=== PATIENT | male | born 1965 | race Caucasian/White ===

== ENCOUNTER 2020-11-14 15:13 | Inpatient (IN) | payer OTHER, SELFPAY ==
[2020-11-14] VITALS (12 sets, daily range): BP systolic 139–163; BP diastolic 92–104; PULSE 101–120; RESP 26–37; TEMP 36.6; O2SAT 91–96; BMI 21.4
--- NOTE | ~2020-11-14 | XR_ITS ---
EXAMINATION: XR chest 1V portable DATE: 11/14/2020 15:57 INDICATION: COPD presenting with shortness of breath and chest pressure TECHNIQUE: frontal view of the chest was obtained. COMPARISON: Chest radiograph dated 08/08/2019 FINDINGS: Again seen is emphysema with hyperexpansion the lungs and increased lucency, architectural distortion and bullous changes in the bilateral upper lung zones. Persistent coarse interstitial pattern and sc attered mild patchy airspace opacities in the bilateral mid and lower lung zones. Blunting at the abby ateral costophrenic angles consistent with small bilateral pleural effusions. No pneumothorax. Cardio megaly. IMPRESSION: 1. Emphysema. 2. Similar pattern of interstitial and airspace opacities in the bilateral mid and lower lung zones w hich could represent congestive heart failure related pulmonary edema, pneumonia, atelectasis or some combination thereof. 3. Small bilateral pleural effusions. 4. Cardiomegaly. Reviewed, dictated and finalized at location A. TRIMMER IMPRESSION: 1. Emphysema. 2. Similar pattern of interstitial and airspace opacities in the bilateral mid and lower lung zones which could represent congestive heart failure related pul monary edema, pneumonia, atelectasis or some combination thereof. 3. Small bilateral pleural effusions. 4. Cardiomegaly.
--- NOTE | ~2020-11-14 | US_ITS ---
EXAMINATION: US venous doppler [facility] DATE: 11/17/2020 07:43 INDICATION: Bilateral lower limb swelling TECHNIQUE: Manley scale images without and with compression and Doppler images of the bilateral lower e xtremity veins were obtained. COMPARISON: 03/11/2019 FINDINGS: The right common femoral vein, profunda femoral vein, femoral vein, popliteal vein, peroneal trunk, p osterior tibial veins, and greater saphenous vein are patent. The left common femoral vein, profunda femoral vein, femoral vein, popliteal vein, peroneal trunk, po sterior tibial veins, and greater saphenous vein are patent. IMPRESSION: 1. Patent bilateral lower extremity veins. No evidence of deep venous thrombosis. Reviewed, dictated and finalized at location A. RONMENTAL ENGINEER SCIENTIST IMPRESSION: 1. Patent bilateral lower extremity veins. No evidence of deep venous thrombosi s.
--- NOTE | ~2020-11-14 | XR_ITS ---
XR chest 2V DATE: 11/19/2020 11:51 INDICATION: Chest pain, shortness of breath TECHNIQUE: AP and lateral views COMPARISON: November 14, 2020 portable AP chest FINDINGS: There is bilateral hyperinflation, increased retrosternal airspace disease, relative flatte diana the diaphragm, consistent with COPD. Central pulmonary arteries are prominent, suggesting pulmon julius hypertension. There is cardiomegaly. Is aortic calcification. There are bilateral pulmonary infiltrates which predominate in the lower lung zones; these are mildly improved since November 14, 2020 and may be secondary to pulmonary edema and/or pneumonia. There are mild pleural effusions. No pneumothorax. IMPRESSION: Mild interval improvement of bilateral infiltrates since 01/12/2021 suggesting improvement of pulmonary interstitial edema and/or pneumonia Reviewed, dictated and finalized at location A. RICT ATTORNEY
--- NOTE | 2020-11-14 15:21 | ECG_ITS ---
Measurements Intervals [place] Rate: 113 P: 65 [place]: 136 QRS: -72 QRSD: 108 T: 83 QT: 350 QTc: 481 Interpretive Statements SINUS TACHYCARDIA POSSIBLE RIGHT ATRIAL ENLARGEMENT LEFT ATRIAL ENLARGEMENT INCOMPLETE RIGHT BUNDLE BRANCH BLOCK LEFT ANTERIOR FASCICULAR BLOCK BASELINE ARTIFACT- II, III, AVF, V4-V6 ABNORMAL ECG Electronically Signed On 11-14-2020 15:49:29 FULL SERVICE SUPERVISOR by Rogers Calderon D.O.
[2020-11-14 15:34] LABS: Basophils Absolute Auto 0.1 K/mm3 (0.0-0.1); Basophils Percent Auto 0.4 % (0.2-1.2); Eosinophils Absolute Auto 0.1 K/mm3 (0-0.3); Eosinophils Percent Auto 0.7 % (0-4.4); Hematocrit 42.6 % (42.0-52.0); Hemoglobin 13.9 g/dL (14.0-18.0); Immature Granulocyte Absolute 0.11 K/mm3 (0.00-0.031); Immature Granulocyte Percent A 0.8 % (0-0.5); Lymphocytes Absolute Auto 0.62 K/mm3 (0.9-3.2); Lymphocytes Percent Auto 4.6 % (18.3-44.2); Mean Corpuscular HGB Conc 32.6 g/dl (32-36); Mean Corpuscular Hemoglobin 35.7 pg (26-34); Mean Corpuscular Volume 109.5 fl (80-100); Mean Platelet Volume 9.4 fl (7.4-10.4); Monocytes Absolute Auto 0.9 K/mm3 (0.1-0.6); Monocytes Percent Auto 6.4 % (2.6-8.5); Neutrophils Absolute Auto 11.8 K/mm3 (1.3-6.7); Neutrophils Percent Auto 87.1 % (45.5-73.1); Platelet Count Result 189 k/mm3 (150-375); Red Blood Count 3.89 M/mm3 (4.6-6.20); Red Cell Distribution Width 14.3 % (11.5-14.5); White Blood Count 13.5 K/mm3 (4.5-10.0)
[2020-11-14 15:42] LABS: INR 0.9; Prothrombin Time 12.8 Seconds (11.1-14.7)
[2020-11-14 15:43] LABS: Partial Thromboplastin Time 27.7 SECONDS (22.3-36.8)
[2020-11-14 15:48] LABS: Alveolar/Arterial O2 Gradient 195.3 mmHg; Base Excess ABG 1.7 mEq/l (+/-2.0); Carboxyhemoglobin 6.1 % THb (0-2.0); Fractional Inspired Oxygen 44 %; HCO3 ABG 27.2 mEq/l (22.0-26.0); Methemoglobin ABG 0.1 %THb (0-1.5); Oxygen Content ABG 16.3 %vol (16.0-22.0); Oxygen Saturation ABG 92.8 % (95.0-100.0); Oxyhemoglobin 86.6 % THb (90.0-100.0); PCO2 ABG 45.9 mmHg (35.0-45.0); PO2 ABG 66.1 mmHg (80.0-100.0); Reduced Hemoglobin 7.2 %THb (0-5.0); Total Hemoglobin 13.4 g/dL (12.0-18.0)
[2020-11-14 15:50] LABS: Anion Gap 2 mmol/L (8-16); Blood Urea Nitrogen 15 mg/dL (9-20); Calcium 8.3 mg/dL (8.4-10.2); Carbon Dioxide 35 mmol/L (22-30); Chloride 98 mmol/L (98-107); Estimated CRCL calculation 134 ml/min; Estimated Glomerular Filt Rate > 60; Glucose 115 mg/dL (75-110); Potassium 4.5 mmol/L (3.4-5.0); Sodium 135 mmol/L (137-145)
[2020-11-14 15:50] LABS: Device NASAL CANNULA; Modified Allen's Test Pass; Site Drawn LEFT RADIAL
[2020-11-14 15:53] LABS: NT Pro B Type Natriuretic Pept 5090 PG/ML (5-100)
--- NOTE | 2020-11-14 16:17 | ED.SOB ---
HPI - SOB/Dyspnea General Chief Complaint: Shortness of Breath/Dyspnea Stated Complaint: SOB Time Seen by Provider: 11/14/20 15:17 History of Present Illness HPI Narrative: Patient is a 55-year-old male who presents ER with shortness of breath. Patient has chronic oxygen dependence of 4 L due to his emphysema. He also has known CHF. Reports he has had increased leg swelling over the last couple months and over the last few days he has been doubling his Lasix without any success in decreasing his edema. Reports edema is gone up to his abdomen as well. Shortness of breath is worse with laying down and with any type of movement. Patient was in his primary care physician's office and satting at 77% on his home O2 when he got sent to the ER. Denies fevers or chills or productive cough. No chest pain/pressure. Related Data Home Medications Medication Instructions Recorded Confirmed fluticasone furoate 100 1 inhalation INHALATION DAILY 05/24/20 mcg/actuation blister powder for inhalation Allergies Allergy/AdvReac Type Severity Reaction Status Date / Time No Known Allergies Allergy Mild Verified 11/14/20 14:46 Review of Systems Review of Systems: All systems reviewed & are unremarkable except as noted in HPI and below Constitutional: Constitutional: Denies chills, Reports fatigue and Denies fever(s) ENT: Denies nasal congestion and Denies sore throat Cardiovascular: Cardiovascular: Denies chest pain, Denies rapid heart rate and Denies radiating jaw, neck or arm pain Respiratory: Respiratory: Reports chest congestion, Denies cough, Reports dyspnea and Denies wheezing Gastrointestinal: Gastrointestinal: Denies abdominal pain, Denies nausea and Denies vomiting Musculoskeletal: Comments: Extremity edema PMFSH Past Medical History Medical History (Updated 11/14/20 @ 16:34 by Waqar Bravo MD) CHF (congestive heart failure) Chronic malnutrition COPD (chronic obstructive pulmonary disease) Emphysema, unspecified Laceration of thumb, right Skin cancer Tobacco abuse Surgical History Surgical History (Updated 08/08/19 @ 16:54 by Sandro Bernal) History of local excision of skin lesion Family History Family History Mother Hypertension Family history of cardiovascular disease, Onset Age: 43 Acute myocardial infarction, Onset Age: 43 Sibling Family history of cardiovascular disease Family history of lung cancer Patient's sister is in good health Patient's brother is in good health Acute myocardial infarction Family history of chronic obstructive pulmonary disease Family history of malignant neoplasm of brain Social History Social History Social History: The patient is and lives with his of 35 years. The patient does admit since have to be a full code. The patient uses nor methamphetamines in the past but not currently. The patient is a needs himself to be a full code. 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 He has 2 children. 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 Smoking packs per day: 1 Smoking cigarettes per day: 20.0 Years smoked: 30 Smoking pack-years: 30.00 Smoking status: Current every day smoker Tobacco type: cigarettes Second hand tobacco smoke exposure: Yes Alcohol intake: current Drinks per week: 14 Substance use: current Substance use type: marijuana Gender identity (if verbalized by the patient): Male Spiritual care concerns: No Agree to blood products: Yes Exam Narrative: Exam Narrative: GENERAL: Chronically ill-appearing, well-nourished, and in moderate distress. HEAD: Normocephalic, atraumatic. ENT: Mucous membranes moist. CHEST: Coarse rales throughout with increased respiratory rate. Moderate respiratory distress. HEART: Tachycardic and regular. Normal peripheral pulses. A
[2020-11-14] MEDS: FUROSEMIDE INJ 40 MG/4 ML VIAL IV PUSH (17:13)
[2020-11-14] MEDS: HYDROcodone/acetaminophen (*CRX) 5-325 MG TABLET 1 TAB PO (17:13)
--- NOTE | 2020-11-14 18:24 | PC.NURSE ---
Heart healthy meal tray ordered for patient.
--- NOTE | 2020-11-14 18:28 | PC.NURSE ---
Meal tray sent to room 231.
--- NOTE | 2020-11-14 19:27 | PC.NURSE ---
1926 - Report called to RN taking over patient's care. RT called for transport.
--- NOTE | 2020-11-14 20:15 | ADMGEN ---
This patient, Jimmy Welch, was admitted to IMU Room 231-01 0n [id number] at 1940. Patient/family oriented to hospital policies and general routines including ID bracelet, bed and alarms, visiting hours, pain management, procedures, bathroom and other care routines, personal items, smoking policy, room service/diet, and visiting hours. Information on how to activate the Rapid Response Team has been discussed. Patient/Family are encouraged to report perceived risks to care and to ask questions if they do not understand what they are told or what they should do.
--- NOTE | 2020-11-14 22:17 | PM.IMHP ---
H&P: HPI History of Present Illness Date/Time: 11/14/20 22:17 Chief Complaint: Shortness of breath with hypoxia Narrative: Jimmy Welch is a 55 year old male. The patient has chronic respiratory failure and is typically on oxygen at 4 L per nasal cannula. The patient has had increased swelling over the last couple months. In the last couple days he doubled his Lasix without success. The patient went to his primary care doctor's office today it is O2 saturation was found to be 88%. The patient has orthopnea but this is not uncommon for him. The patient also has dyspneic exertion. Patient has no chest pain or chest pressure. No fever no chills. The patient has been taking his medication as usual. Patient still continues to smoke about 4 -5 cigarettes a day. His blood pressure was found to be 143/100. His white count was noted to be 13.5. Chest x-ray was read as emphysema. Similar pattern of interstitial and airspace opacities in the bilateral mid and lower lung zones which could represent congestive heart failure related to pulmonary edema, pneumonia, atelectasis or some combination thereof. Small bilateral pleural effusion. Cardiomegaly. Arterial blood gases pH 7.390. CO2 was 45.9. Patient is on 6 L per nasal cannula at this time. The patient had been on a BiPAP. Patient is being admitted to inpatient on the date of service of 11/14/2020 Review of Systems Review of Systems: All systems reviewed & are unremarkable except as noted in HPI and below Constitutional: Constitutional: Reports as per HPI and Reports no additional constitutional complaints Eyes: Eyes: Reports as per HPI and Reports no additional eye complaints ENT: Reports system reviewed and no additional complaints, except as documented and Reports Normal hearing present Cardiovascular: Cardiovascular: Reports no additional cardiovascular complaints Respiratory: Respiratory: Reports no additional respiratory complaints and Reports no additional respiratory complaints Gastrointestinal: Gastrointestinal: Reports as per HPI and Reports no additional gastrointestinal complaints Musculoskeletal: Musculoskeletal: Reports no additional musculoskeletal complaints Integumentary/Breasts: Skin/Breast: Reports system reviewed and no additional complaints, except as docu and Reports as per HPI Neurologic: Reports system reviewed and no additional complaints, except as documented, Reports as per HPI and Reports Normal hearing present Psychiatric: Psychiatric: Reports no additional psychiatric complaints and Reports as per HPI Endocrine: Endocrine: Reports no additional endocrine complaints Hematologic/Lymphatic: Hematologic/Lymphatic: Reports no additional hematologic/lymphatic complaints Allergic/Immunologic: Allergic/Immunologic: Reports no additional allergic/immunologic complaints [facility] Past Medical History Medical History CHF (congestive heart failure) Chronic malnutrition COPD (chronic obstructive pulmonary disease) Emphysema, unspecified Laceration of thumb, right Skin cancer Tobacco abuse Surgical History Surgical History (Updated 11/14/20 @ 22:21 by Sharlene Maria NP) History of local excision of skin lesion On the face Family History Family History Mother Hypertension Family history of cardiovascular disease, Onset Age: 43 Acute myocardial infarction, Onset Age: 43 Sibling Family history of cardiovascular disease Family history of lung cancer Patient's sister is in good health Patient's brother is in good health Acute myocardial infarction Family history of chronic obstructive pulmonary disease Family history of malignant neoplasm of brain Social History Social History (Updated 11/14/20 @ 22:26 by Sharlene Maria NP) Social History: The patient is and lives with his . The patient is
[2020-11-14] MEDS: methylPREDNISolone SOD SUCC 125 MG VIAL 60 MG IV PUSH (23:41)
[2020-11-15] VITALS (14 sets, daily range): BP systolic 124–152; BP diastolic 72–86; PULSE 85–107; RESP 16–30; TEMP 36.1–36.7; O2SAT 92–96
--- NOTE | 2020-11-15 | ECHO_ITS ---
Patient Info Name: Jimmy Welch Age: 55 years : 1965 Gender: Male Ht: 69 in Wt: 145 lbs BSA: 1.79 m2 HR: 101 bpm BP: 152 / 84 mmHg Heart Rhythm: Sinus Rhythm Technical Quality: Good Exam Date: 11/15/2020 2:20 PM Exam Location: [facility] Patient Status: Inpatient Admit Date: 11/14/2020 Staff Ordering Physician: Saqib Viera MD Cutter Wet Machine: Kirit Nieto, KAYLYNN, RT Attending Provider: Fernie Pan MD Exam Type: CA echo doppler color flow Study Info Indications I27.2 - Other secondary pulmonary hypertension I50.9 - Heart failure, unspecified Complete two-dimensional, color flow and Doppler transthoracic echocardiogram is performed. Strain analysis performed. Summary 1. Complete two-dimensional, color flow and Doppler transthoracic echocardiogram is performed. 2. Strain analysis performed. 3. Left ventricular chamber dimension is moderately enlarged. 4. Left ventricular systolic function is severely reduced, estimated at 25-30%. 5. There is mildly increased left ventricular wall thickness. 6. The left ventricular diastolic function is grade I diastolic dysfunction. 7. Global longitudinal strain is abnormal at -12 %. 8. Right ventricular chamber dimension is severely enlarged. 9. Right ventricular systolic function is reduced. 10. Left atrial chamber dimension is mildly enlarged. 11. Right atrial chamber dimension is moderately enlarged. 12. There is mild aortic valve regurgitation. 13. There is moderate mitral valve regurgitation. 14. There is moderate tricuspid valve regurgitation. 15. Severe pulmonary hypertension, estimated pulmonary arterial systolic pressure is 72 mmHg. 16. There is mild pulmonic regurgitation. Left Ventricle Left ventricular chamber dimension is moderately enlarged. Left ventricular systolic function is severely reduced, estimated at 25-30%. There is mildly increased left ventricular wall thickness. The left ventricular diastolic function is grade I diastolic dysfunction. Global longitudinal strain is abnormal at -12 %. Right Ventricle Right ventricular chamber dimension is severely enlarged. Right ventricular systolic function is reduced. Left Atria Left atrial chamber dimension is mildly enlarged. Right Atria Right atrial chamber dimension is moderately enlarged. Atrial Septum Intact interatrial septum visualized by color flow imaging. Aortic Valve The aortic valve is trileaflet. There is mild aortic valve sclerosis. There is no aortic valve stenosis. There is mild aortic valve regurgitation. Pulmonic Valve The pulmonic valve is normal. There is no pulmonic valve stenosis. There is mild pulmonic regurgitation. Mitral Valve The mitral valve has normal leaflets. There is no mitral valve stenosis. There is moderate mitral valve regurgitation. Tricuspid Valve The tricuspid valve leaflets are normal. There is no significant tricuspid valve stenosis. There is moderate tricuspid valve regurgitation. Severe pulmonary hypertension, estimated pulmonary arterial systolic pressure is 72 mmHg. Pericardium/Pleural The pericardium appears normal. There is trivial pericardial effusion. Inferior Vena Cava Dilated inferior vena cava with <50% collapse upon inspiration consistent with elevated right atrial pressure, 15 mmHg. Aorta The aortic root size at the sinus of Valsalva is mildly dilated. The prox ascending aorta size is normal. Left Ventricular Outflow Tra
[2020-11-15] MEDS: methylPREDNISolone SOD SUCC 125 MG VIAL 60 MG IV PUSH ×4 (05:45→23:55)
[2020-11-15] MEDS: FUROSEMIDE INJ 40 MG/4 ML VIAL IV PUSH (05:45)
[2020-11-15] MEDS: ASPIRIN 81 MG ENTERIC TABLET PO (07:52)
[2020-11-15] MEDS: NAPROXEN SODIUM 220 MG TABLET PO (07:52)
[2020-11-15] MEDS: FLUTICASONE PROP 110 MCG INHALER 12 GM (*SP) 2 PUFF INHALATION ×2 (07:52→20:15)
[2020-11-15] MEDS: PANTOPRAZOLE 40 MG TABLET PO (07:53)
[2020-11-15] MEDS: ENOXAPARIN 40 MG/0.4 ML SYRINGE SUB-Q (07:56)
--- OUTSIDE RECORDS SUMMARY | 2020-11-15 08:21 | XMS_ITS | Encounter Summary ---
:1965 Author Care Team Providers Name Role Phone Santos Max MD Primary Care Provider [phone] Reason for Visit TeleHealth Visit Patient gave consent to [facility]. Patient i s doing google duo. Assessment and Plan Assessment Note The patient gave verbal consent usi TeleHealth services and the consent is documented in the medical record prior to using the service. The patient has been informed of what a TeleMedicine visit is. Patient is located at home. Provider is located at office. Names and roles of persons in addition to the patient and provider participating in telemedicine services include none. The patient had a 1 4 minute TeleMedicine consultation via o ther to discuss the following: GOOGLE DUO 1. Chronic obstructive lung dise ase PFT 10/06/19 with FEV1:FVC rat io 40%. FEV1 37% with no significant bronchodila tor response. TLC 102%, RV 149%. DLCO corrected 47%. Continue Anoro and Arnuity. Continue 5 liters at night with NIV. Azithromycin three times weekly, renewal sent today Discussed COVID-19, vaccine, and current CDC recommendations Discussed reportable signs and symptoms. INfluenza vaccine current. RTO in 3 months, PRN for concerns ? azithromycin 500 mg tablet 2. Chronic respiratory failure Continue NIV, increase use augustin e 3. Edema of lower extremity INstructed on strict complianc e with diuretic and d
--- OUTSIDE RECORDS SUMMARY | 2020-11-15 08:21 | XMS_ITS | Encounter Summary ---
:1965 Author Care Team Providers Name Role Phone Santos Max MD Primary Care Provider [phone] Reason for Visit Chronic obstructive lung disease Assessment and Plan Assessment Note Jimmy presented with oxygen saturat ions 79% on 4 liters pulsed dose while in wheelchair(no activity/walking) Crackles and wheezes throughout. Accessory muscle use, visibly dyspneic Increased oxygen levels to 6 liters cont inuous flow with corresponding increase in saturations to 92% Any conversation during visit results in increased HR and decreased saturations, however he was able to maintain 90% or greater. Breathing treatment given, decreased in oxygen delivery to 5 liters, he maintained saturations of 92%. I have advised him to be evaluated in e ER I have discussed the risk of poor outcom es, including , with delay of treatment. He is alert and oriented, expresses unde rstanding, and refuses transport to ER. His is present and expresses unders tanding as well. I have instructed him to go home immedia tely and take his oral Lasix Monitor saturations, oxygen to keep at 9 0% NIV use throughout the day. Instructed him on S/S that require emerg ent evaluation. Yaneth () will call later today with u pdate 1. Congestive heart failure Likely in exacerbation today, has not taken diuretic in 3 days. 2+ BLE. Crackles bilaterally INstructed on compliant diuretic use and daily weights See above 2. Chronic obstructive lung dise ase Severe. PFT 10/06/19 with FEV1:FVC ratio 40%. FEV1 37% with no significant bronchodila tor response.
--- OUTSIDE RECORDS SUMMARY | 2020-11-15 08:21 | XMS_ITS ---
:1965 Author Care Team Providers Name Role Phone IRIS LEPE MD Primary Care Provider [phone] Allergies Code Code System Name Reaction Severity Status Onset NKDA ? Notes: Some allergies listed in Document: #[id number] could not be added to this patient's chart. Please review this document and add these allergies to the patient's chart manually as needed. Medications Name Status Start Date Stop Date ? ? albuterol sulfate 2.5 mg/3 mL (0.083 %) Active ? Not available solution for nebulization albuterol sulfate concentrate 2.5 mg/0.5 mL solution for nebuliz ation Active ? Not available Inhale 0.5 mL 3 times a day by nebulization route as needed for 30 days. amoxicillin 875 mg-potassium clavulanate Active ? Not available 125 mg tablet cyclobenzaprine 10 mg tablet Active ? Not available GaviLyte-N 420 gram oral solution Active ? Not available ibuprofen 800 mg tablet Active ? Not avai lable prednisone 10 mg tablet Active ? Not avai lable promethazine 25 mg tablet Active ? Not av ailable Symbicort 160 mcg-4.5 mcg/actuation HFA Active ? Not available aerosol inhaler Ventolin HFA 90 mcg/actuation aerosol inhaler Active ? Not available INHALE TWO PUFFS BY MOUTH FOUR TIMES A DAY NEEDED FOR 30 DAY S Notes: Some medications listed i n Document: #[id number] could not be added to this patient's chart. Please review this document and add these medications to the patient's chart manually as needed. Problems Name Status Onset Date Source ?
--- OUTSIDE RECORDS SUMMARY | 2020-11-15 08:21 | XMS_ITS ---
:1965 Author Care Team Providers Name Role Phone RITA PALMER MD Primary Care Provider [phone] Allergies Code Code System Name Reaction Severity Status Onset NKDA ? Medications Name Status Start Date Stop Date ? ? acetaminophen 325 mg tablet Completed ? 06/29 TK 2 TS PO Q 4 H PRF MILD PAIN OR FEVER albuterol sulfate (2.5 mg/3ml) 0.083% Completed ? 01/02/2020 nebu albuterol sulfate 2.5 mg/3 mL (0.083 %) solution for nebulizatio n Active ? Not available USE ONE VIAL VIA NEBULIZER EVERY 4 HOURS albuterol sulfate HFA 90 mcg/actuation aerosol inhaler Active ? Not available INHALE 1 OR 2 PUFFS BY MOUTH EVERY 4 TO 6 HOURS NEEDED FOR SHORTNESS OF BREATH OR WHEEZING Anoro Ellipta 62.5 mcg-25 mcg/actuation Active ? Not available powder for inhalation anoro ellipta 62.5-25 mcg/inh aepb Completed ? 01/02/2020 Arnuity Ellipta 100 mcg/actuation Active ? Not available powder for inhalation azithromycin 250 mg tablet Completed ? 09/18 FPD. azithromycin 250 mg tabs Completed ? 020 azithromycin 500 mg tablet Active ? Not a vailable TAKE 1 TABLET BY MOUTH 3 TIMES A WEEK DIRECTED FOR 28 DAYS Brovana 15 mcg/2 mL solution for nebulization Completed ? 05/21/2020 Inhale 2 mL twice a day by inhalation route as directed for 30 days. budesonide 0.5 mg/2 mL suspension for nebulization Completed ? 05/21/2020 Inhale 2 mL twice a day by nebulization route as directed for 3 0 days. bupropion
--- NOTE | 2020-11-15 12:13 | PM.IMPN ---
Progress Note: A&P Assessment and Plan (1) Acute and chronic respiratory failure: Code(s): J96.20 - Acute and chronic respiratory failure, unspecified whether with hypoxia or hypercapnia Status: Acute Assessment and Plan: The patient had been on BiPAP on admission but able to wean to nasal cannula. He was on 6 L O2 but has been weaned 4 L now which is his baseline. Suspect combination of COPD and CHF exacerbation. (2) COPD exacerbation: Code(s): J44.1 - Chronic obstructive pulmonary disease with (acute) exacerbation Status: Acute Assessment and Plan: Patient has longstanding COPD is here for exacerbation. Improved air exchange and decreased oxygen requirement today. Continue Solu-Medrol. Continue Flovent. He is also on Zithromax chronically to help prevent exacerbations. Continue to monitor. Increase activity. Resume Anoro Ellipta. (3) Acute exacerbation of CHF (congestive heart failure): Code(s): I50.9 - Heart failure, unspecified Status: Acute Assessment and Plan: Chest x-ray showing emphysema and evidence of CHF. His BNP was 5000. Patient with considerable pedal edema on presentation which is improved with diuretics. Some of this may be related to pulmonary hypertension. Check echocardiogram (4) Depression: Code(s): F32.9 - Major depressive disorder, single episode, unspecified Status: Acute Assessment and Plan: Mood stable. Not on any medications for depression. (5) Tobacco abuse: Code(s): Z72.0 - Tobacco use Status: Chronic Assessment and Plan: Patient was educated about the benefits of smoking cessation. (6) DVT prophylaxis: Code(s): Z29.9 - Encounter for prophylactic measures, unspecified Status: Acute Assessment and Plan: Lovenox Subjective Date/time seen: 11/15/20 12:13 Interval history: Date of service 11/15 55yo male with chronic respiratory failure (4L), CHF and COPD here for sob and hypoxia. Patient states shortness of breath is better but persistent. No chest pain. Cough is without change. Cough is productive. No fevers or chills. He noted improvement of his pedal edema. No nausea or vomiting. No flatus or bowel movements today. He still smokes 1-2 cigarettes per day. Exam Narrative: Exam Narrative: AF 97.1 134/81 85 20 93% 4L Gen - NARD sitting up in bed eating lunch Chest -expiratory rhonchi anteriorly. Inspiratory crackles in the bases. CV - RRR S1/S2; telemetry showing PVCs Abd -soft. Protuberant. Positive bowel sounds. Ext -trace pedal edema with wrinkling of the skin. Clubbing noted. Psych - Nml mood and affect Skin - Warm and dry Objective Data Vital Signs Vital Signs: Vital Signs - 24 hr 11/14/20 15:26 11/14/20 15:32 11/14/20 15:38 Temperature 97.9 F Pulse Rate 109 H 112 H Respiratory Rate Blood Pressure 143/100 H Pulse Oximetry 95 94 11/14/20 15:44 11/14/20 16:01 11/14/20 16:16 Temperature Pulse Rate Respiratory Rate 37 H Blood Pressure 141/104 H 139/92 H Pulse Oximetry 96 11/14/20 18:13 11/14/20 18:15 11/14/20 19:30 Temperature 98 F Pulse Rate 101 H 104 H 113 H Respiratory Rate 27 H 28 H 26 H Blood Pressure 163/102 H Pulse Oximetry 96 11/14/20 19:40 11/14/20 20:00 11/14/20 22:00 Temperature Pulse Rate 113 H 120 H 103 H Respiratory Rate 36 H 26 H Blood Pressure Pulse Oximetry 96 91 11/15/20 00:00 11/15/20 02:00 11/15/20 04:00 Temperature 98.0 F 97.8 F Pulse Rate 98 104 H 102 H Respiratory Rate 22 H 20 Blood Pressure 137/86 139/86 Pulse Oximetry 96 95 11/15/20 06:00 11/15/20 08:00 11/15/20 09:25 Temperature 97.1 F L Pulse Rate 92 101 H Respiratory Rate 20 Blood Pressure 134/81 Pulse Oximetry 94 93 11/15/20 10:00 Temperature Pulse Rate 85 Respiratory Rate Blood Pressure Pulse Oximetry Intake/Output Intake/Output: Intake & Ou
[2020-11-15] MEDS: ALBUTEROL SULFATE NEB 2.5 MG/0.5 ML INH INHALATION ×2 (14:39→21:34)
[2020-11-15] MEDS: FUROSEMIDE 40 MG TABLET PO (17:43)
[2020-11-15] MEDS: METOPROLOL SUCCINATE EXT REL 25 MG TABCR PO (17:44)
[2020-11-15] MEDS: ALBUTEROL SULFATE (*SP) AEROSOL 1 PUFF 2 PUFF INHALATION (18:31)
--- NOTE | 2020-11-15 19:47 | PC.NURSE ---
Transferred patient to [facility]. Report given via Khloe Gay RN.
[2020-11-16] VITALS (18 sets, daily range): BP systolic 116–126; BP diastolic 67–79; PULSE 70–92; RESP 16–24; TEMP 36–36.9; O2SAT 90–100
[2020-11-16] MEDS: HYDROcodone/acetaminophen (*CRX) 5-325 MG TABLET 1 TAB PO
[2020-11-16 05:52] LABS: Hematocrit 37.1 % (42.0-52.0); Hemoglobin 12.1 g/dL (14.0-18.0); Mean Corpuscular HGB Conc 32.6 g/dl (32-36); Mean Corpuscular Hemoglobin 35.7 pg (26-34); Mean Corpuscular Volume 109.4 fl (80-100); Platelet Count Result 175 k/mm3 (150-375); Red Blood Count 3.39 M/mm3 (4.6-6.20); White Blood Count 6.1 K/mm3 (4.5-10.0)
[2020-11-16] MEDS: methylPREDNISolone SOD SUCC 125 MG VIAL 60 MG IV PUSH ×3 (05:55→17:19)
[2020-11-16 06:02] LABS: Anion Gap 4 mmol/L (8-16); Blood Urea Nitrogen 19 mg/dL (9-20); Calcium 7.7 mg/dL (8.4-10.2); Carbon Dioxide 39 mmol/L (22-30); Chloride 91 mmol/L (98-107); Estimated CRCL calculation 156 ml/min; Estimated Glomerular Filt Rate > 60; Glucose 202 mg/dL (75-110); Potassium 3.7 mmol/L (3.4-5.0); Sodium 134 mmol/L (137-145)
[2020-11-16] MEDS: ASPIRIN 81 MG ENTERIC TABLET PO (09:04)
[2020-11-16] MEDS: PANTOPRAZOLE 40 MG TABLET PO (09:04)
[2020-11-16] MEDS: AZITHROMYCIN 250 MG TABLET 500 MG PO (09:04)
[2020-11-16] MEDS: FUROSEMIDE 40 MG TABLET PO ×2 (09:04→17:18)
[2020-11-16] MEDS: ENOXAPARIN 40 MG/0.4 ML SYRINGE SUB-Q (09:04)
[2020-11-16] MEDS: FLUTICASONE PROP 110 MCG INHALER 12 GM (*SP) 2 PUFF INHALATION ×2 (09:05→21:46)
[2020-11-16] MEDS: ALBUTEROL SULFATE NEB 2.5 MG/0.5 ML INH INHALATION ×3 (09:08→21:45)
--- NOTE | 2020-11-16 13:40 | PM.IMPN ---
Progress Note: A&P Assessment and Plan (1) Acute and chronic respiratory failure: Code(s): J96.20 - Acute and chronic respiratory failure, unspecified whether with hypoxia or hypercapnia Status: Acute Assessment and Plan: The patient had been on BiPAP on admission but able to wean to nasal cannula. Suspect combination of COPD and CHF exacerbation. Continue to wean to his baseline 4 L. (2) COPD exacerbation: Code(s): J44.1 - Chronic obstructive pulmonary disease with (acute) exacerbation Status: Acute Assessment and Plan: Patient has longstanding COPD is here for exacerbation. CT chest without contrast 09/16/20 showing severe emphysema and extensive bronchiectasis and scarring in the lung basesImproved air exchange and decreased oxygen requirement with treatment. Continue Solu-Medrol. Continue Flovent and Anoro Ellipta. He is also on Zithromax chronically to help prevent exacerbations. Continue to monitor. Increase activity. (3) Acute exacerbation of CHF (congestive heart failure): Code(s): I50.9 - Heart failure, unspecified Status: Acute Assessment and Plan: Chest x-ray showing emphysema and evidence of CHF. His BNP was 5000. Echo showing EF 25-30% and diastolic dysfunction Grade 1 with moderate MR. Patient with considerable pedal edema on presentation which is improved with diuretics. Some of this related to pulmonary hypertension. Continue diuretics. (4) Depression: Code(s): F32.9 - Major depressive disorder, single episode, unspecified Status: Acute Assessment and Plan: Mood stable. Not on any medications for depression. (5) Tobacco abuse: Code(s): Z72.0 - Tobacco use Status: Chronic Assessment and Plan: Patient was again educated about the benefits of smoking cessation. (6) DVT prophylaxis: Code(s): Z29.9 - Encounter for prophylactic measures, unspecified Status: Acute Assessment and Plan: Lovenox (7) Pulmonary hypertension: Code(s): I27.20 - Pulmonary hypertension, unspecified Status: Acute Assessment and Plan: Echo also showing reduced RV systolic function,RA enlargement, moderate TR and severe pulmonary HTN (72mmHg). Related to the COPD. Chronic thromboembolic disease felt much less likely given severe emphysematous changes by CT chest scan findings from August. Check apnea link. Will check lower extremity Dopplers as well. Subjective Date/time seen: 11/16/20 13:40 Interval history: Date of service 2/19 55yo male with chronic respiratory failure (4L), CHF and COPD here for sob and hypoxia. No allergies to medications. Not been out of bed yet. No CP but felt he had chest 'pressure' earlier but nothing now. No radiation to the pressure. Persistent productive cough yellow sputum. Bilateral LE feel weak and heavy from the edema. Exam Narrative: Exam Narrative: AF 97.4 123/78 87 22 98% 5L Gen - NARD sitting up in bed Chest -decreased BS in the left base o/w bilateral lower lung inspiratory crackles and diffuse expiratory rhonchi. nml RR, no conversatinal dyspnea CV - RRR S1/S2 Abd -soft. Less protuberant. Positive bowel sounds. Ext - 1+ pitting edema to medial thighs. Psych - mildly anxious Skin - Warm and dry Objective Data Vital Signs Vital Signs: Vital Signs - 24 hr 11/15/20 14:39 11/15/20 16:00 11/15/20 20:00 Temperature 97 F L Pulse Rate 90 95 Respiratory Rate 18 24 H Blood Pressure 135/83 Pulse Oximetry 94 94 11/15/20 21:34 11/15/20 21:43 11/15/20 22:00 Temperature 97.4 F L Pulse Rate 97 95 99 Respiratory Rate 20 18 16 Blood Pressure 124/72 Pulse Oximetry 94 94 11/16/20 02:00 11/16/20 02:30 11/16/20 02:39 Temperature 97.7 F Pulse Rate 83 70 70 Respiratory Rate 21 H 22 H 20 Blood Pressure 120/67 Pulse Oximetry 100 11/16/20 06:00 11/16/20 09:00 11/16/20 09:10 Temperature 98.
[2020-11-16] MEDS: METOPROLOL SUCCINATE EXT REL 25 MG TABCR PO (17:19)
[2020-11-17] VITALS (12 sets, daily range): BP systolic 115–144; BP diastolic 69–85; PULSE 84–107; RESP 16–24; TEMP 35.9–36.5; O2SAT 90–95
[2020-11-17] MEDS: methylPREDNISolone SOD SUCC 125 MG VIAL 60 MG IV PUSH ×4 (00:59→17:39)
[2020-11-17 06:25] LABS: Albumin Level 3.1 g/dL (3.5-5.1); Blood Urea Nitrogen 16 mg/dL (9-20); Calcium 7.7 mg/dL (8.4-10.2); Carbon Dioxide > 40 mmol/L (22-30); Chloride 92 mmol/L (98-107); Estimated CRCL calculation 154 ml/min; Estimated Glomerular Filt Rate > 60; Glucose 192 mg/dL (75-110); Magnesium 1.4 mg/dL (1.6-2.3); Phosphorus 2.5 mg/dL (2.5-4.5); Sodium 137 mmol/L (137-145)
[2020-11-17] MEDS: ALBUTEROL SULFATE (*SP) AEROSOL 1 PUFF 2 PUFF INHALATION (06:50)
[2020-11-17 07:14] LABS: Folic Acid 10.6 ng/mL (2.76->20)
[2020-11-17] MEDS: POTASSIUM CHLORIDE 20 MEQ TABLET 40 MEQ PO (08:02)
[2020-11-17] MEDS: MAGNESIUM SULF 2 GM/WATER 50ML 2 GM/50 ML BAG IVPB (08:02)
[2020-11-17] MEDS: ASPIRIN 81 MG ENTERIC TABLET PO (08:03)
[2020-11-17] MEDS: ENOXAPARIN 40 MG/0.4 ML SYRINGE SUB-Q (08:03)
[2020-11-17] MEDS: FUROSEMIDE 40 MG TABLET PO (08:03)
[2020-11-17] MEDS: PANTOPRAZOLE 40 MG TABLET PO (08:03)
[2020-11-17] MEDS: ALBUTEROL SULFATE NEB 2.5 MG/0.5 ML INH INHALATION ×3 (10:02→21:21)
[2020-11-17] MEDS: FLUTICASONE PROP 110 MCG INHALER 12 GM (*SP) 2 PUFF INHALATION ×2 (10:02→21:21)
--- NOTE | 2020-11-17 13:18 | PM.IMPN ---
Progress Note: A&P Assessment and Plan (1) Acute and chronic respiratory failure: Code(s): J96.20 - Acute and chronic respiratory failure, unspecified whether with hypoxia or hypercapnia Status: Acute Assessment and Plan: The patient had been on BiPAP on admission but able to wean to nasal cannula. Suspect combination of COPD and CHF exacerbation. Apnea link for 6hours was normal on 4L. Patient back to his baseline 4 L. (2) COPD exacerbation: Code(s): J44.1 - Chronic obstructive pulmonary disease with (acute) exacerbation Status: Acute Assessment and Plan: Patient has longstanding COPD is here for exacerbation. CT chest without contrast 09/16/20 showing severe emphysema and extensive bronchiectasis and scarring in the lung bases. Improved air exchange and decreased oxygen requirement with treatment. Continue Solu-Medrol. Continue Flovent and Anoro Ellipta. He is also on Zithromax chronically to help prevent exacerbations. Continue to monitor. Increase activity. (3) Acute exacerbation of CHF (congestive heart failure): Code(s): I50.9 - Heart failure, unspecified Status: Acute Assessment and Plan: Chest x-ray showing emphysema and evidence of CHF. His BNP was 5000. Echo showing EF 25-30% and diastolic dysfunction Grade 1 with moderate MR. Patient with considerable pedal edema on presentation which is improved with negative fluid balance but has slowed, change back to IV. Some of this related to pulmonary hypertension. Continue diuretics. (4) Depression: Code(s): F32.9 - Major depressive disorder, single episode, unspecified Status: Acute Assessment and Plan: Mood stable. Not on any medications for depression. (5) Tobacco abuse: Code(s): Z72.0 - Tobacco use Status: Chronic Assessment and Plan: Patient was educated about the benefits of smoking cessation. (6) DVT prophylaxis: Code(s): Z29.9 - Encounter for prophylactic measures, unspecified Status: Acute Assessment and Plan: Lovenox (7) Pulmonary hypertension: Code(s): I27.20 - Pulmonary hypertension, unspecified Status: Acute Assessment and Plan: Echo also showing reduced RV systolic function,RA enlargement, moderate TR and severe pulmonary HTN (72mmHg). Related to the COPD. Chronic thromboembolic disease felt much less likely given severe emphysematous changes by CT chest scan findings from August. Apnea link okay. Doppler negative. Subjective Date/time seen: 11/17/20 13:18 Interval history: Date of service 11/17 55yo male with chronic respiratory failure (4L), CHF and COPD here for sob and hypoxia. Patient slept poorly because of the apnea link. No chest pain. He did feel chest pressure related to the belt from the apnea link. No nausea vomiting. Eating normally. Still with dyspnea on exertion. He is walking in the room. Exam Narrative: Exam Narrative: AF 97.7 129/69 84 20 93% 4L Gen - NARD Chest -inspiratory crackles mostly in the bases. Diffuse expiratory rhonchi. CV - RRR S1/S2 Abd -soft. Mildly protuberant. Positive bowel sounds. Ext - 1+ pitting edema to medial thighs. Psych - nml mood and affect Skin - Warm and dry Objective Data Vital Signs Vital Signs: Vital Signs - 24 hr 11/16/20 14:00 11/16/20 15:12 11/16/20 15:26 Temperature 97.5 F L Pulse Rate 90 84 84 Respiratory Rate 24 H 16 16 Blood Pressure 116/70 Pulse Oximetry 96 11/16/20 17:19 11/16/20 18:00 11/16/20 21:29 Temperature 96.9 F L 96.8 F L Pulse Rate 86 91 92 Respiratory Rate 22 H 20 Blood Pressure 123/72 126/79 Pulse Oximetry 98 95 11/16/20 21:40 11/16/20 21:48 11/16/20 21:54 Temperature Pulse Rate 80 74 Respiratory Rate 22 H 22 H Blood Pressure Pulse Oximetry 95 95 11/16/20 22:25 11/17/20 02:00 11/17/20 04:00 Temperature 97.7 F 97.0 F L Pulse Rate 87 10
[2020-11-17] MEDS: FUROSEMIDE INJ 40 MG/4 ML VIAL IV PUSH (15:52)
[2020-11-17] MEDS: METOPROLOL SUCCINATE EXT REL 25 MG TABCR PO (17:38)
[2020-11-18] VITALS (14 sets, daily range): BP systolic 121–137; BP diastolic 70–83; PULSE 85–100; RESP 16–20; TEMP 36.1–36.5; O2SAT 92–100
[2020-11-18] MEDS: methylPREDNISolone SOD SUCC 125 MG VIAL 60 MG IV PUSH ×2 (00:13→05:53)
[2020-11-18] MEDS: ALBUTEROL SULFATE NEB 2.5 MG/0.5 ML INH INHALATION ×4 (02:33→19:51)
[2020-11-18 05:57] LABS: Blood Urea Nitrogen 15 mg/dL (9-20); Calcium 7.8 mg/dL (8.4-10.2); Carbon Dioxide > 40 mmol/L (22-30); Chloride 93 mmol/L (98-107); Estimated CRCL calculation 196 ml/min; Estimated Glomerular Filt Rate > 60; Glucose 150 mg/dL (75-110); Magnesium 1.6 mg/dL (1.6-2.3); Potassium 3.2 mmol/L (3.4-5.0); Sodium 136 mmol/L (137-145)
[2020-11-18] MEDS: FLUTICASONE PROP 110 MCG INHALER 12 GM (*SP) 2 PUFF INHALATION ×2 (07:44→19:52)
[2020-11-18] MEDS: POTASSIUM CHLORIDE 20 MEQ TABLET 40 MEQ PO (07:56)
[2020-11-18] MEDS: MAGNESIUM SULF 2 GM/WATER 50ML 2 GM/50 ML BAG IVPB (07:56)
[2020-11-18] MEDS: FUROSEMIDE INJ 40 MG/4 ML VIAL IV PUSH ×2 (07:57→18:08)
[2020-11-18] MEDS: ASPIRIN 81 MG ENTERIC TABLET PO (07:57)
[2020-11-18] MEDS: ENOXAPARIN 40 MG/0.4 ML SYRINGE SUB-Q (07:57)
[2020-11-18] MEDS: PANTOPRAZOLE 40 MG TABLET PO (07:57)
--- NOTE | 2020-11-18 10:57 | PM.IMPN ---
Progress Note: A&P Assessment and Plan (1) Acute and chronic respiratory failure: Code(s): J96.20 - Acute and chronic respiratory failure, unspecified whether with hypoxia or hypercapnia Status: Acute Assessment and Plan: The patient required BiPAP on admission but able to wean to nasal cannula. Suspect combination of COPD and CHF exacerbation. Apnea link for 6hours was normal on 4L. Patient back to his baseline 4 L. Monitor (2) COPD exacerbation: Code(s): J44.1 - Chronic obstructive pulmonary disease with (acute) exacerbation Status: Acute Assessment and Plan: Patient has longstanding COPD is here for exacerbation. CT chest without contrast 09/16/20 showing severe emphysema and extensive bronchiectasis and scarring in the lung bases. Improved air exchange and decreased oxygen requirement with treatment. Currently on Solu-Medrol, Flovent and Anoro Ellipta. He is also on Zithromax chronically to help prevent exacerbations. Continue to monitor. Increase activity. Change to oral steroids. Add Diamox. (3) Acute exacerbation of CHF (congestive heart failure): Code(s): I50.9 - Heart failure, unspecified Status: Acute Assessment and Plan: Chest x-ray showing emphysema and evidence of CHF. BNP was 5000. Echo showing EF 25-30% and diastolic dysfunction Grade 1 with moderate MR. Patient with considerable pedal edema on presentation which has improved with negative fluid balance. Some of this related to pulmonary hypertension. Home meds include metoprolol and Lasix. Continue metoprolol and diuretic therapy. Add ARB. (4) Pulmonary hypertension: Code(s): I27.20 - Pulmonary hypertension, unspecified Status: Acute Assessment and Plan: Echo also showing reduced RV systolic function,RA enlargement, moderate TR and severe pulmonary HTN (72mmHg). Related to the COPD. Chronic thromboembolic disease felt much less likely given severe emphysematous changes by CT chest findings from August. Apnea link okay. Doppler negative. (5) Depression: Code(s): F32.9 - Major depressive disorder, single episode, unspecified Status: Acute Assessment and Plan: Mood stable. Not on any medications for depression. (6) Tobacco abuse: Code(s): Z72.0 - Tobacco use Status: Chronic Assessment and Plan: Patient was educated about the benefits of smoking cessation. (7) DVT prophylaxis: Code(s): Z29.9 - Encounter for prophylactic measures, unspecified Status: Acute Assessment and Plan: Lovenox Subjective Date/time seen: 11/18/20 10:57 Interval history: Date of service 11/18 55yo male with chronic respiratory failure (4L), CHF and COPD here for sob and hypoxia. Feeling better. Less edema. Walking to the BR. +NOBLE. Cough productive of yellow sputum but overall better. Exam Narrative: Exam Narrative: AF 97.4 121/80 100 18 97% 4L Gen - NARD Chest - bibasilar inspiratory crackles, mild coarse expiratory rhonchi CV - RRR S1/S2 Abd - abdomen softer, +BS Ext - 1+ pitting edema to medial thighs. Psych - nml mood and affect Skin - Warm and dry Objective Data Vital Signs Vital Signs: Vital Signs - 24 hr 11/17/20 14:30 11/17/20 15:17 11/17/20 15:24 Temperature 97.6 F Pulse Rate 98 100 84 Respiratory Rate 22 H 20 20 Blood Pressure 144/79 H Pulse Oximetry 95 11/17/20 17:30 11/17/20 21:21 11/17/20 21:33 Temperature 97.1 F L Pulse Rate 107 H 84 87 Respiratory Rate 22 H 20 20 Blood Pressure 115/74 Pulse Oximetry 90 93 11/17/20 22:00 11/18/20 02:33 11/18/20 02:42 Temperature 96.7 F L Pulse Rate 95 90 89 Respiratory Rate 16 20 20 Blood Pressure 125/74 Pulse Oximetry 94 11/18/20 05:00 11/18/20 07:45 11/18/20 07:54 Temperature 96.9 F L Pulse Rate 96 86 85 Respiratory Rate 16 20 20 Blood Pressure 126/83 Pulse Oximetry 93 92 11/18/20 08:
[2020-11-18] MEDS: LOSARTAN POTASSIUM 25 MG TABLET PO (13:09)
[2020-11-18] MEDS: METOPROLOL SUCCINATE EXT REL 25 MG TABCR PO (18:08)
[2020-11-19] VITALS (19 sets, daily range): BP systolic 101–125; BP diastolic 64–77; PULSE 78–110; RESP 16–20; TEMP 36–36.6; O2SAT 92–99
[2020-11-19] MEDS: ALBUTEROL SULFATE NEB 2.5 MG/0.5 ML INH INHALATION ×4 (01:51→21:12)
[2020-11-19] MEDS: ALBUTEROL SULFATE (*SP) AEROSOL 1 PUFF 2 PUFF INHALATION (05:35)
[2020-11-19 05:49] LABS: Blood Urea Nitrogen 21 mg/dL (9-20); Calcium 7.7 mg/dL (8.4-10.2); Carbon Dioxide > 40 mmol/L (22-30); Chloride 97 mmol/L (98-107); Estimated CRCL calculation 107 ml/min; Estimated Glomerular Filt Rate > 60; Glucose 84 mg/dL (75-110); Magnesium 1.8 mg/dL (1.6-2.3); Potassium 3.4 mmol/L (3.4-5.0); Sodium 135 mmol/L (137-145)
[2020-11-19] MEDS: POTASSIUM CHLORIDE 20 MEQ TABLET 40 MEQ PO (07:52)
[2020-11-19] MEDS: predniSONE 20 MG TABLET 40 MG PO (07:53)
--- NOTE | 2020-11-19 08:45 | PM.IMPN ---
Progress Note: A&P Assessment and Plan (1) Chest pressure: Code(s): R07.89 - Other chest pain Status: Acute Assessment and Plan: Most likely related to his COPD exacerbation. He does have risk factors however so will consider cardiac etiolgy. Check EKG and Trop. Place on Tele. Will check CXR. Other treatments detailed below. EKG showing inverted T waves in the anterior and lateral leads probably chronic when compared to prior EKGs. Trop negative x3. CXR reviewed showing persistent bibasilar airspace disease with evidence of improvement. Suspect bibasilar scarring as well. Continue to follow. (2) Acute and chronic respiratory failure: Code(s): J96.20 - Acute and chronic respiratory failure, unspecified whether with hypoxia or hypercapnia Status: Acute Assessment and Plan: The patient required BiPAP on admission but able to wean to nasal cannula. Suspect combination of COPD and CHF exacerbation. Apnea link for 6hours was normal on 4L. Patient back to his baseline 4 L. Stable. (3) COPD exacerbation: Code(s): J44.1 - Chronic obstructive pulmonary disease with (acute) exacerbation Status: Acute Assessment and Plan: Patient has longstanding COPD and is here for exacerbation. CT chest without contrast 09/16/20 showing severe emphysema and extensive bronchiectasis and scarring in the lung bases. Improved air exchange and decreased oxygen requirement with treatment. Currently on Prednisone, Flovent and Anoro Ellipta. He is also on Zithromax chronically to help prevent exacerbations. Symptoms worse this morning. May need slower taper of Solu-Medrol. Will resume Solu-Medrol. (4) Acute exacerbation of CHF (congestive heart failure): Code(s): I50.9 - Heart failure, unspecified Status: Acute Assessment and Plan: Chest x-ray on admission showing emphysema and evidence of CHF. BNP was 5000. Echo showing EF 25-30% and diastolic dysfunction Grade 1 with moderate MR. Patient with pedal edema on presentation which has improved with negative fluid balance. Some of this edema related to pulmonary hypertension. Home meds include metoprolol and Lasix. Losartan added. Change back to oral Lasix in the morning. Advance Diamox today. (5) Pulmonary hypertension: Code(s): I27.20 - Pulmonary hypertension, unspecified Status: Acute Assessment and Plan: Echo also showing reduced RV systolic function,RA enlargement, moderate TR and severe pulmonary HTN (72mmHg). Related to the COPD. Chronic thromboembolic disease felt much less likely given severe emphysematous changes by CT chest findings from August. Apnea link okay. Doppler negative. (6) Depression: Code(s): F32.9 - Major depressive disorder, single episode, unspecified Status: Acute Assessment and Plan: Mood stable. Not on any medications for depression. (7) Tobacco abuse: Code(s): Z72.0 - Tobacco use Status: Chronic Assessment and Plan: Patient was educated about the benefits of smoking cessation. (8) DVT prophylaxis: Code(s): Z29.9 - Encounter for prophylactic measures, unspecified Status: Acute Assessment and Plan: Lovenox Subjective Date/time seen: 11/19/20 08:45 Interval history: Date of service 11/19 55yo male with chronic respiratory failure (4L), CHF and COPD here for sob and hypoxia. Patient with chest pressure last night and this mroning. Continuous without radiation. No nausea but SOB. Chest pressure better after breathing treatment. Was out of bed with NOBLE but no change in the chest pressure. No cough Exam Narrative: Exam Narrative: AF 97.1 118/77 86 16 99% 4L Gen - NARD sitting up in bed Chest - diffuse expiratory rhonchi/wheeze with inspiratory crackles CV - RRR S1/S2 Abd - soft, protuberant Ext - improvement in the LE pitting edema Psych - nml mood and affect Skin - Warm
--- NOTE | 2020-11-19 09:08 | ECG_ITS ---
Measurements Intervals [place] Rate: 86 P: 53 RI: 147 QRS: -43 QRSD: 110 T: 118 QT: 370 QTc: 444 Interpretive Statements SINUS RHYTHM POSSIBLE RIGHT ATRIAL ENLARGEMENT LEFT AXIS DEVIATION RSR' IN V1 OR V2, CONSIDER RIGHT VENTRICULAR HYPERTROPHY OR RIGHT VCD BORDERLINE ST-T WAVE ABNORMALITY- ANTEROLAT/HIGH LAT LEADS BORDERLINE ECG Electronically Signed On 11-19-2020 10:23:59 [employer] by Rogers Calderon D.O.
[2020-11-19 09:47] LABS: Troponin I < 0.012 ng/mL (0.000-0.034)
[2020-11-19] MEDS: FUROSEMIDE INJ 40 MG/4 ML VIAL IV PUSH ×2 (09:54→17:48)
[2020-11-19] MEDS: LOSARTAN POTASSIUM 25 MG TABLET PO (09:55)
[2020-11-19] MEDS: PANTOPRAZOLE 40 MG TABLET PO (09:55)
[2020-11-19] MEDS: ASPIRIN 81 MG ENTERIC TABLET PO (09:55)
[2020-11-19] MEDS: AZITHROMYCIN 250 MG TABLET 500 MG PO (09:55)
[2020-11-19] MEDS: acetaZOLAMIDE TAB 250 MG TABLET PO ×2 (09:56→17:47)
[2020-11-19] MEDS: ENOXAPARIN 40 MG/0.4 ML SYRINGE SUB-Q (09:56)
[2020-11-19] MEDS: FLUTICASONE PROP 110 MCG INHALER 12 GM (*SP) 2 PUFF INHALATION ×2 (09:59→21:18)
--- NOTE | 2020-11-19 10:35 | PCOTNOTE ---
Attempted to see patient for OT, patient verbalized he isn't feeling well today and asked therapist to try tomorrow. Patient not seen for OT this date. Will continue plan of care tomorrow.
--- NOTE | 2020-11-19 10:54 | PCPTNOTE ---
The PT treatment was unable to be completed today due to patient refusal. Will continue per Plan of Care frequency and duration.
[2020-11-19] MEDS: methylPREDNISolone SOD SUCC 40 MG VIAL IV PUSH ×2 (13:30→21:56)
[2020-11-19 13:37] LABS: Troponin I < 0.012 ng/mL (0.000-0.034)
[2020-11-19 16:34] LABS: Troponin I < 0.012 ng/mL (0.000-0.034)
[2020-11-19] MEDS: METOPROLOL SUCCINATE EXT REL 25 MG TABCR PO (17:48)
[2020-11-20] VITALS (21 sets, daily range): BP systolic 103–157; BP diastolic 66–79; PULSE 73–111; RESP 18–24; TEMP 36.1–37.1; O2SAT 87–98
[2020-11-20] MEDS: ALBUTEROL SULFATE (*SP) AEROSOL 1 PUFF 2 PUFF INHALATION (02:41)
[2020-11-20] MEDS: ALBUTEROL SULFATE NEB 2.5 MG/0.5 ML INH INHALATION ×3 (02:42→13:57)
[2020-11-20 05:52] LABS: Anion Gap 2 mmol/L (8-16); Blood Urea Nitrogen 20 mg/dL (9-20); Calcium 7.5 mg/dL (8.4-10.2); Carbon Dioxide 33 mmol/L (22-30); Chloride 99 mmol/L (98-107); Estimated CRCL calculation 104 ml/min; Estimated Glomerular Filt Rate > 60; Glucose 132 mg/dL (75-110); Potassium 3.6 mmol/L (3.4-5.0); Sodium 134 mmol/L (137-145)
[2020-11-20] MEDS: methylPREDNISolone SOD SUCC 40 MG VIAL IV PUSH (06:28)
[2020-11-20] MEDS: ASPIRIN 81 MG ENTERIC TABLET PO (08:08)
[2020-11-20] MEDS: ENOXAPARIN 40 MG/0.4 ML SYRINGE SUB-Q (08:08)
[2020-11-20] MEDS: PANTOPRAZOLE 40 MG TABLET PO (08:08)
[2020-11-20] MEDS: FUROSEMIDE INJ 40 MG/4 ML VIAL IV PUSH (08:08)
[2020-11-20] MEDS: acetaZOLAMIDE TAB 250 MG TABLET PO (08:08)
[2020-11-20] MEDS: LOSARTAN POTASSIUM 25 MG TABLET PO (08:08)
[2020-11-20] MEDS: FLUTICASONE PROP 110 MCG INHALER 12 GM (*SP) 2 PUFF INHALATION (09:13)
--- NOTE | 2020-11-20 10:18 | PM.DS ---
DS: Admitting Diagnosis Admitting Diagnosis Admitting Diagnosis: Acute exacerbation of COPD Acute respiratory failure with hypoxia and hypercapnia Acute exacerbation of systolic congestive heart failure Atypical chest pressure History of depression History of pulmonary hypertension Tobacco screen DS: Discharge Diagnosis Discharge Diagnosis (1) Chest pressure: Code(s): R07.89 - Other chest pain Status: Acute Assessment and Plan: Most likely related to his COPD exacerbation. He does have risk factors however so will consider cardiac etiolgy. Check EKG and Trop. Place on Tele. Will check CXR. Other treatments detailed below. EKG showing inverted T waves in the anterior and lateral leads probably chronic when compared to prior EKGs. Trop negative x3. CXR reviewed showing persistent bibasilar airspace disease with evidence of improvement. Suspect bibasilar scarring as well. Continue to follow. (2) Acute and chronic respiratory failure: Code(s): J96.20 - Acute and chronic respiratory failure, unspecified whether with hypoxia or hypercapnia Status: Acute Assessment and Plan: The patient required BiPAP on admission but able to wean to nasal cannula. Suspect combination of COPD and CHF exacerbation. Apnea link for 6hours was normal on 4L. Patient back to his baseline 4 L. Stable. (3) COPD exacerbation: Code(s): J44.1 - Chronic obstructive pulmonary disease with (acute) exacerbation Status: Acute Assessment and Plan: Patient has longstanding COPD and is here for exacerbation. CT chest without contrast 09/16/20 showing severe emphysema and extensive bronchiectasis and scarring in the lung bases. Improved air exchange and decreased oxygen requirement with treatment. Currently on Prednisone, Flovent and Anoro Ellipta. He is also on Zithromax chronically to help prevent exacerbations. Symptoms worse this morning. May need slower taper of Solu-Medrol. Will resume Solu-Medrol. (4) Acute exacerbation of CHF (congestive heart failure): Code(s): I50.9 - Heart failure, unspecified Status: Acute Assessment and Plan: Chest x-ray on admission showing emphysema and evidence of CHF. BNP was 5000. Echo showing EF 25-30% and diastolic dysfunction Grade 1 with moderate MR. Patient with pedal edema on presentation which has improved with negative fluid balance. Some of this edema related to pulmonary hypertension. Home meds include metoprolol and Lasix. Losartan added. Change back to oral Lasix in the morning. Advance Diamox today. (5) Pulmonary hypertension: Code(s): I27.20 - Pulmonary hypertension, unspecified Status: Acute Assessment and Plan: Echo also showing reduced RV systolic function,RA enlargement, moderate TR and severe pulmonary HTN (72mmHg). Related to the COPD. Chronic thromboembolic disease felt much less likely given severe emphysematous changes by CT chest findings from August. Apnea link okay. Doppler negative. (6) Depression: Code(s): F32.9 - Major depressive disorder, single episode, unspecified Status: Acute Assessment and Plan: Mood stable. Not on any medications for depression. (7) Tobacco abuse: Code(s): Z72.0 - Tobacco use Status: Chronic Assessment and Plan: Patient was educated about the benefits of smoking cessation. (8) DVT prophylaxis: Code(s): Z29.9 - Encounter for prophylactic measures, unspecified Status: Acute Assessment and Plan: Lovenox DS: Summary Hospital Course Reason for hospitalization: Shortness of breath Hospital Course: Patient is 55 years old male was admitted with shortness of breath. Patient physical examination shows that the patient has acute exacerbation of congestive heart failure and exacerbations of COPD. Patient chest x-ray shows congestive heart failure changes Patient was given diuresis and
[2020-11-20] MEDS: methylPREDNISolone (MEDROL) DOSEPACK 4 MG TABLETS PO ×2 (13:00→13:01)
--- NOTE | 2020-11-20 15:51 | HOMEO2EVAL ---
Home Oxygen Evaluation RC: Home Oxygen (O2) Evaluation Start: 11/20/20 08:15 Freq: ONCE Status: Active Protocol: RPE Activity Type Activity Date Activity User E-Sign Co-Sign Detail Recorded Client Recorded Date Recorded By Document 11/20/20 15:15 TRE [email or web address] 11/20/20 15:51 TRE Document 11/20/20 15:16 TRE [email or web address] 11/20/20 15:51 TER Document 11/20/20 15:17 TRE [email or web address] 11/20/20 15:51 TRE Document 11/20/20 15:18 TRE [email or web address] 11/20/20 15:51 TRE Document 11/20/20 15:19 TRE [email or web address] 11/20/20 15:51 TRE Document 11/20/20 15:20 TRE [email or web address] 11/20/20 15:51 TRE Document 11/20/20 15:23 TRE [email or web address] 11/20/20 15:51 TRE Document 11/20/20 15:30 TRE [email or web address] 11/20/20 15:51 TRE 11/20/20 11/20/20 11/20/20 15:15 15:16 15:17 Home O2 Evaluation Test Phase Resting Resting Resting Oxygen Delivery Room Air Nasal Cannula Nasal Cannula Oxygen Flow Rate (L/min) 1 2 Pulse Oximetry (90-100 %) 87 L 87 L 87 L Pulse Rate (60-100 beats/min) Ambulation Distance (feet) Home Oxygen Evaluation Comments Treatment Charges O2 Evaluation - Inpatient 11/20/20 11/20/20 11/20/20 15:18 15:19 15:20 Home O2 Evaluation Test Phase Resting Resting Exercise Oxygen Delivery Nasal Cannula Nasal Cannula Nasal Cannula Oxygen Flow Rate (L/min) 3 4 4 Pulse Oximetry (90-100 %) 87 L 92 87 L Pulse Rate (60-100 beats/min) 100 110 H Ambulation Distance (feet) Home Oxygen Evaluation Comments Treatment Charges 11/20/20 11/20/20 15:23 15:30 Home O2 Evaluation Test Phase Exercise Resting Oxygen Delivery Nasal Cannula Nasal Cannula Oxygen Flow Rate (L/min) 5 4 Pulse Oximetry (90-100 %) 90 93 Pulse Rate (60-100 beats/min) 98 Ambulation Distance (feet) 100 Home Oxygen Evaluation Comments PT REQUIRES 4 L AT REST AND 5 L WITH EXERTION Treatment Charges
--- NOTE | 2020-11-20 15:51 | PCRCNOTE ---
HOME O2 EVAL DONE, PT NEEDS HAVE NOT CHANGED FROM EXISTING HOME SETTINGS. 4 L AT REST AND 5 L WITH EXERTION. PT HAS [facility] FOR HOME O2 COMPANY. PT HAS PORTABLE TANKS AND WELL CONCENTRATOR AT HOME. I WILL FAX UPDATED EVAL TO [facility], NO ORDERS NEED TO BE WRITTEN B/C NO CHANGES HAVE OCCURRED
== END 2020-11-20 15:40 | disposition home or self-care (01) | DRG 291 ==
LOC: ANHED 16:34 → ANHIMU 22:18 → ANH2MED 11-16 10:59 → ANHIMU 11-21 16:59
PROVIDERS: Admitting Provider Internal Medicine; Emergency Provider Emergency Medicine; PCP Family Medicine; Visit Provider Internal Medicine
DX: I50.33 Acute on chronic diastolic (congestive) heart failure (principal); J96.21 Acute and chronic respiratory failure with hypoxia; E46 Unspecified protein-calorie malnutrition; J43.9 Emphysema, unspecified; I27.20 Pulmonary hypertension, unspecified; F17.210 Nicotine dependence, cigarettes, uncomplicated; Z68.20 Body mass index [BMI] 20.0-20.9, adult; Z85.828 Personal history of other malignant neoplasm of skin; Z99.81 Dependence on supplemental oxygen
CPT/HCPCS: 36415; 36600; 71045; 71046; 80048; 80069; 82375; 82607; 82746; 82805; 83050; 83735; 83880; 84484; 85025; 85027; 85610; 85730; 93005; 93306; 93970; 94003; 94618; 94640; 94667; 94762; 96374; 97110; 97116; 97161; 97165; 97530; 97535; 99291; A9270; G0378; J1650; J1940; J2920; J2930; J3475; J7512

== ENCOUNTER 2021-01-21 14:41 | Outpatient (CLI) | payer OTHER, SELFPAY ==
--- NOTE | ~2021-01-21 | XR_ITS ---
EXAMINATION: XR chest 2V DATE: 01/21/2021 15:15 INDICATION: Chronic obstructive pulmonary disease with acute exacerbation TECHNIQUE: frontal and lateral views of the chest were obtained. COMPARISON: Chest radiograph dated 11/19/2020 FINDINGS: Again seen is emphysema with hyperexpansion lungs and increased lucency with architectural distortion and bullous changes in the bilateral upper lung zones. Chronic coarse interstitial pattern and mild patchy airspace opacities in the bilateral mid and lower lung zones. There is also chronic blunting a t the bilateral costophrenic angles and posterior sulci suggesting small bilateral pleural effusions. The cardiomediastinal silhouette is within normal limits for AP technique. Mild thoracic spondylosis . IMPRESSION: 1. Emphysema. 2. Chronic interstitial and mild patchy airspace opacities in bilateral mid and lower lung zones whic h could represent pulmonary edema, pneumonia, atelectasis, chronic interstitial fibrosis or some comb ination thereof. 3. Small bilateral pleural effusions. Reviewed, dictated and finalized at location A. IMPRESSION: 1. Emphysema. 2. Chronic interstitial and mild patchy airspace opacities in bilateral mid and lower lung zones which could represent pulmonary edema, pneumonia, atelectasis , chronic interstitial fibrosis or some combination thereof. 3. Small bilateral pleural effusions.
[2021-01-21 15:20] LABS: Basophils Absolute Auto 0.1 K/mm3 (0.0-0.1); Basophils Percent Auto 0.8 % (0.2-1.2); Eosinophils Absolute Auto 0.3 K/mm3 (0-0.3); Hematocrit 37.6 % (42.0-52.0); Hemoglobin 13.1 g/dL (14.0-18.0); Immature Granulocyte Percent A 1.1 % (0-0.5); Lymphocytes Percent Auto 8.6 % (18.3-44.2); Mean Corpuscular HGB Conc 34.8 g/dl (32-36); Mean Corpuscular Hemoglobin 34.9 pg (26-34); Mean Corpuscular Volume 100.3 fl (80-100); Mean Platelet Volume 9.1 fl (7.4-10.4); Monocytes Absolute Auto 0.6 K/mm3 (0.1-0.6); Monocytes Percent Auto 6.7 % (2.6-8.5); Neutrophils Absolute Auto 7.4 K/mm3 (1.3-6.7); Neutrophils Percent Auto 79.8 % (45.5-73.1); Platelet Count Result 272 k/mm3 (150-375); Red Blood Count 3.75 M/mm3 (4.6-6.20); Red Cell Distribution Width 12.4 % (11.5-14.5); White Blood Count 9.3 K/mm3 (4.5-10.0)
[2021-01-21 15:36] LABS: Alanine Aminotransferase 48 U/L (4-50); Albumin Level 3.8 g/dL (3.5-5.1); Alkaline Phosphatase 168 U/L (38-126); Anion Gap 13 mmol/L (8-16); Aspartate Amino Transferase 57 U/L (17-59); Bilirubin,Total 0.8 mg/dL (0.2-1.3); Blood Urea Nitrogen 16 mg/dL (9-20); Calcium 8.6 mg/dL (8.4-10.2); Carbon Dioxide 30 mmol/L (22-30); Chloride 79 mmol/L (98-107); Estimated Glomerular Filt Rate > 60; Glucose 86 mg/dL (75-110); Potassium < 2.0 mmol/L (3.4-5.0); Sodium 122 mmol/L (137-145)
== END 2021-01-21 14:42 | disposition home or self-care (01) ==
PROVIDERS: PCP Family Medicine; Visit Provider Family Medicine
DX: J44.1 Chronic obstructive pulmonary disease with (acute) exacerbation (principal); I50.9 Heart failure, unspecified; R91.8 Other nonspecific abnormal finding of lung field; J90 Pleural effusion, not elsewhere classified
CPT/HCPCS: 36415; 71046; 80053; 85025

== ENCOUNTER 2021-01-22 07:52 | Inpatient (IN) | payer OTHER, SELFPAY ==
[2021-01-22] VITALS (27 sets, daily range): BP systolic 102–133; BP diastolic 65–90; PULSE 88–111; RESP 18–26; TEMP 36.4–37.3; O2SAT 94–100; BMI 17.7
--- NOTE | ~2021-01-22 | US_ITS ---
US abdomen limited INDICATION: Hepatic steatosis. Fatty liver. PROCEDURE: Realtime right upper abdominal ultrasound. COMPARISON: No prior studies for comparison. FINDINGS: Pancreas not well visualized due to overlying bowel gas. Liver echotexture is increased, c onsistent with fatty infiltration. There is normal directional flow in the portal vein. Portal vein is dilated measuring 15 mm, a sign of portal hypertension. The gallbladder is normal without stones, gallbladder wall thickening or pericholecystic fluid. Common bile duct measures 3 mm. No sonographi c Nieto's sign. IMPRESSION: 1: Hepatic steatosis. 2: Dilated portal vein which is a sign of portal hypertension. Reviewed, dictated and finalized at location B.
--- NOTE | ~2021-01-22 | XR_ITS ---
XR chest 1V portable DATE: 01/27/2021 05:55 INDICATION: Pneumonia TECHNIQUE: Portable AP chest on 01/27/2021 at 0519 hours COMPARISON: 01/26/2021 portable AP chest at 0902 hours FINDINGS: Bilateral hyperinflation consistent with COPD. There are patchy infiltrates scattered throughout both lungs, mildly increased since 01/26/2021. Cardiomegaly. Aortic calcification. Diffuse osteopenia. IMPRESSION: Extensive bilateral pulmonary infiltrates, increased since 01/26/2021 COPD Reviewed, dictated and finalized at location A.
--- NOTE | ~2021-01-22 | CT_ITS ---
EXAMINATION: CT chest high resolution wo sd DATE: 01/22/2021 10:54 INDICATION: Shortness of breath. COPD. TECHNIQUE: Computed tomography (CT) of the chest was performed without intravenous contrast. The dose -length product was 146.07 mGy-cm. Automated exposure control and iterative reconstruction technique were employed. COMPARISON: CT dated 01/22/2021 FINDINGS: There is mediastinal lymphadenopathy, for instance right paratracheal lymph node measures 1 .3 cm short axis. There is atherosclerosis of the aorta and coronary arteries. No significant pleural or pericardial effusion. Fatty infiltration of the liver. There is severe emphysema. There are coars e interstitial infiltrates of the lung periphery was scattered areas of groundglass opacification, br onchiectasis involving the right middle lobe, lingula and lower lobes. There are areas of mucous plug ging involving the left lower lobe in particular. There is more focal consolidation dependently in th e lower lobes which could represent superimposed pneumonia. IMPRESSION: 1. Severe emphysema with probable superimposed chronic pulmonary fibrosis. In addition, there is exte nsive bronchiectasis, mucous plugging with superimposed consolidation dependently in the lower lobes. Consider allergic bronchopulmonary aspergillosis superimposed on the above findings. More focal cons olidation in the lower lobes may represent superimposed pneumonia. Atypical infection should be consi dered. 2: Mediastinal lymphadenopathy, nonspecific. Reviewed, dictated and finalized at location B. IMPRESSION: 1. Severe emphysema with probable superimposed chronic pulmonary fibrosis. In a ddition, there is extensive bronchiectasis, mucous plugging with superimposed c onsolidation dependently in the lower lobes. Consider allergic bronchopulmonary aspergillosis superimposed on the above findings. More focal consolidation in the lower lobes may represent superimposed pneumonia. Atypical infection should be considered. 2: Mediastinal lymphadenopathy, nonspecific.
--- NOTE | ~2021-01-22 | CT_ITS ---
EXAMINATION: CT abdomen pelvis w con EXAM DATE: 01/22/2021 09:46 INDICATION: Abdominal distention. Only eating broth for 2 weeks. TECHNIQUE: Spiral CT of the abdomen and pelvis was performed following intravenous injection of 100 m L Omnipaque 350. Axial, coronal and sagittal images of the abdomen and pelvis were reviewed. The do se-length product (DLP) for this examination was 193.38 mGy-cm. The exposure was tailored according to patient size (auto mA exposure control), and iterative reconstruction (ASIR) was used as additiona l dose reduction technique. There is no prior study for comparison. FINDINGS: There is hepatic steatosis without suspicious focal lesion identified. Spleen, adrenal glan ds, pancreas are unremarkable. Gallbladder is unremarkable. No biliary obstruction. Portal and spl enic veins are patent. Portal vein measures 18 mm in diameter, could indicate portal hypertension. Ki dneys enhance symmetrically. There is no hydronephrosis. The prostate is unremarkable. The bladde r is unremarkable. There is no retroperitoneal or pelvic lymphadenopathy. There is mild scattered arteriosclerotic disease. Large right inguinal hernia containing nonobstructed small bowel, moderate size left-sided fat-containing inguinal hernia. Possible identification of an unremarkable appendix. No pericecal inflammation. The stomach and smal l bowel are unremarkable. There is moderate amount of colonic stool. There is moderate sigmoid and d escending colonic diverticulosis. There is no adjacent inflammatory change to suggest diverticulitis . No free intraperitoneal gas. The heart is normal in size. There are no pericardial or pleural e ffusions. There is severe basilar bronchiectasis with multiple cavitary regions, air-fluid levels within some o f these airways and cystic cavities, and chronic appearing linear opacities likely atelectasis. Some differential diagnosis considerations include allergic bronchopulmonary aspergillosis, immotile cilia , Mournier-Sarkis:, Kartagener's, cystic fibrosis. A chest CT without contrast might aid in evaluating distribution. There are no osteoblastic or osteolytic lesions identified. IMPRESSION: 1. No acute intra-abdominal findings. 2. Severe bronchiectasis, cavitation, mucous plugging and basilar atelectasis/scarring. Could be AB PA, with other differential considerations above. Consider follow-up pulmonary consult. 3. Hepatic steatosis and possible portal hypertension. 4. Moderate colonic stool and diverticulosis. 5. Inguinal hernias, larger on the right containing nonobstructed small bowel. Reviewed, dictated and finalized at location A. IMPRESSION: 1. No acute intra-abdominal findings. 2. Severe bronchiectasis, cavitation, mucous plugging and basilar atelectasis/ scarring. Could be ABPA, with other differential considerations above. Conside r follow-up pulmonary consult. 3. Hepatic steatosis and possible portal hypertension. 4. Moderate colonic stool and diverticulosis. 5. Inguinal hernias, larger on the right containing nonobstructed small bowel.
--- NOTE | ~2021-01-22 | XR_ITS ---
XR chest 1V portable 01/22/2021 08:58 Indication: COPD. Shortness of breath. Procedure: AP portable chest Comparison: Comparison to multiple prior studies sequentially, with oldest reviewed study dated 07/29. Findings: There are chronic mixed interstitial and airspace disease predominantly affecting the mid a nd lower lungs. Small pleural effusions versus pleural thickening. There are emphysematous changes. N o acute interval change. No pneumothorax. Impression: 1: Chronic mixed interstitial and airspace infiltrates of the mid and lower lung zones which likely r epresents a combination of pulmonary fibrosis, emphysema, atelectasis, although atypical pneumonia is not excluded. No acute changes are identified. Reviewed, dictated and finalized at location B. Impression: 1: Chronic mixed interstitial and airspace infiltrates of the mid and lower edson g zones which likely represents a combination of pulmonary fibrosis, emphysema, atelectasis, although atypical pneumonia is not excluded. No acute changes are identified.
--- NOTE | ~2021-01-22 | XR_ITS ---
XR chest 1V portable DATE: 01/26/2021 09:12 INDICATION: Acute respiratory failure TECHNIQUE: Portable AP chest on 01/26/2021 at 0902 hours COMPARISON: 01/22/2021 CT chest high resolution scan 01/22/2021 portable AP chest FINDINGS: Emphysematous changes are noted. There are patchy infiltrates in the mid and lower lung zon es, new or increased since 01/22/2021, suggesting bilateral pneumonia or aspiration versus pulmonary e leonardo. Mild blunting of the costophrenic angles is likely chronic. Borderline heart size. Aortic arch calcification. Diffuse osteopenia. IMPRESSION: Patchy bilateral pulmonary infiltrates in the mid and lower lung zones, suggesting bilate ral pneumonia. Emphysema Reviewed, dictated and finalized at location A. IMPRESSION: Patchy bilateral pulmonary infiltrates in the mid and lower lung zo damaris, suggesting bilateral pneumonia. Emphysema
--- NOTE | ~2021-01-22 | XR_ITS ---
XR abdomen obstructive series DATE: 01/26/2021 09:12 INDICATION: Abdominal distention TECHNIQUE: Portable supine AP and upright views on 01/26/2021 at [id number] hours COMPARISON: 01/22/2021 CT abdomen pelvis FINDINGS: There is a prominent amount of fecal material throughout most of the colon. No bowel obstru ction or intraperitoneal free air is evident. The psoas shadows appear intact. No visceromegaly is evident. Probable diffuse interstitial fibrotic changes of the lungs. Aortic arch calcification. Catheter overlies left femoral and iliac vessels. IMPRESSION: Prominent amount of fecal material in colon; no bowel obstruction or free air Reviewed, dictated and finalized at Location A. Reviewed, dictated and finalized at location A.
--- NOTE | 2021-01-22 08:13 | ECG_ITS ---
Measurements Intervals [place] Rate: 96 P: -4 ID: [id number] QRS: -15 QRSD: 138 T: 69 QT: 424 QTc: 537 Interpretive Statements SINUS RHYTHM VENTRICULAR PREMATURE COMPLEXES RIGHT BUNDLE BRANCH BLOCK BASELINE ARTIFACT- I, II, III, AVR, AVL, AVF, V1-V6 ABNORMAL ECG Electronically Signed On 01-22-2021 8:53:47 CDT by Rogers Calderon D.O.
--- NOTE | 2021-01-22 08:46 | ED.GENADULT ---
HPI - General Adult General Chief complaint: Recheck/Abnormal Lab/Rx Stated complaint: sent in by PCP- doesn't know why Time Seen by Provider: 01/22/21 07:57 Source: patient History of Present Illness HPI narrative: Patient is a 55 y/o male complaining of low potassium since yesterday. He states that he had outpatient labs done yesterday and he was told by his doctor last night that his potassium was low and he need to come to hospital to be admitted. There is no know reason for his potassium to be better or worse. He has chronic SOB due to COPD. He also states that he has abdominal distention, poor appetite and he has lost 20 lbs over last 3 weeks. Related Data Home Medications Medication Instructions Recorded Confirmed fluticasone furoate 100 1 inhalation INHALATION DAILY 05/24/20 01/21/21 mcg/actuation blister powder for inhalation aspirin 81 mg PO DAILY 11/14/20 01/21/21 furosemide 40 mg PO BID 11/14/20 01/21/21 pantoprazole 40 mg PO QAM 11/14/20 01/21/21 Allergies Allergy/AdvReac Type Severity Reaction Status Date / Time No Known Allergies Allergy Verified 01/22/21 08:06 Review of Systems Constitutional: Constitutional: Denies chills, Reports fatigue, Denies fever(s), Denies headache(s), Reports poor appetite and Reports weight loss Eyes: Eyes: Denies blurry vision ENT: Denies headache(s) and Denies neck pain Cardiovascular: Cardiovascular: Denies chest pain and Reports dyspnea Respiratory: Respiratory: Reports cough and Reports dyspnea Gastrointestinal: Gastrointestinal: Denies abdominal pain, Denies diarrhea, Denies nausea and Denies vomiting Genitourinary: Genitourinary: Denies hematuria and Denies dysuria Musculoskeletal: Musculoskeletal: Denies back pain and Denies neck pain Neurologic: Denies headache(s) and Denies weakness PMFSH Past Medical History Medical History CHF (congestive heart failure) Chronic malnutrition COPD (chronic obstructive pulmonary disease) Emphysema, unspecified Laceration of thumb, right Skin cancer Tobacco abuse Surgical History Surgical History History of local excision of skin lesion On the face Family History Family History Mother Hypertension Family history of cardiovascular disease, Onset Age: 43 Acute myocardial infarction, Onset Age: 43 Sibling Family history of cardiovascular disease Family history of lung cancer Patient's sister is in good health Patient's brother is in good health Acute myocardial infarction Family history of chronic obstructive pulmonary disease Family history of malignant neoplasm of brain Social History Social History Social History: The patient is and lives with his . The patient is on full code. The patient used methamphetamines in the past but not currently. 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 He has 2 children. 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 He denies any alcohol use. Patient continues to smoke about 4 -5 cigarettes a day. Patient continue to smoke marijuana Smoking packs per day: 1 Smoking cigarettes per day: 20.0 Years smoked: 40 Smoking pack-years: 40.00 Smoking status: Current some day smoker Tobacco type: cigarettes Second hand tobacco smoke exposure: No Additional smoking assessment comments: occassionally smokes now Alcohol intake: current Drinks per week: 14 Substance use: current Substance use type: marijuana Gender identity (if verbalized by the patient): Male Spiritual care concerns: No Agree to blood products: Yes Exam Const: General: no acute distress and ill appearing Nutritional Appearance: thin Orientation/consciousness: oriented to person, oriented to place, oriented to time and pat
[2021-01-22 09:25] LABS: Magnesium 1.6 mg/dL (1.6-2.3)
[2021-01-22 09:31] LABS: Alanine Aminotransferase 47 U/L (4-50); Albumin Level 3.6 g/dL (3.5-5.1); Alkaline Phosphatase 157 U/L (38-126); Anion Gap 14 mmol/L (8-16); Aspartate Amino Transferase 59 U/L (17-59); Bilirubin,Total 0.9 mg/dL (0.2-1.3); Blood Urea Nitrogen 16 mg/dL (9-20); Calcium 8.2 mg/dL (8.4-10.2); Carbon Dioxide 31 mmol/L (22-30); Chloride 79 mmol/L (98-107); Estimated Glomerular Filt Rate > 60; Glucose 73 mg/dL (75-110); Sodium 124 mmol/L (137-145)
[2021-01-22] MEDS: POTASSIUM CHLORIDE 20 MEQ TABLET 40 MEQ PO (10:04)
--- NOTE | 2021-01-22 12:22 | PM.IMHP ---
H&P: HPI History of Present Illness Date/Time: 01/22/21 12:22 Abnormal lab 55 year old male known history of COPD, chronic respiratory failure and is typically on oxygen at 4 L. Pt has not been feeling well weak, sob, tired for few weeks. Pt has not been eating well for few weeks, potassium level is very low today at 2. Pt continues to smoke 2-3 cigarettes a day. Pt likes to drinking alcohol one pint of a whiskey a day and has been drinking like this for 1 year. Pt feels like his abdomen is more full. But he has lost weight arms and legs and face are more thin. Pt lost 20 lbs over last 3 weeks. Pt states he has been constipated. No bowel movement for 3 days. Pt complains of sob, cough no fever or chest pain. Pt is stable on high flow oxygen Pt sees doctors in [place], PCP. DR Graves office. CT chest shows bronchiectasis and atypical pneumonia. CT abdo shows hepatic steatosis and possible portal hypertension. Moderate colonic stool and diverticulosis. Inguinal hernias, larger on the right containing nonobstructed small bowel. Potassium is 2, sodium is 124. Chief Complaint: Abnormal labs, weight loss off his foods Review of Systems Review of Systems: All systems reviewed & are unremarkable except as noted in HPI and below PMFSH Past Medical History Medical History CHF (congestive heart failure) Chronic malnutrition COPD (chronic obstructive pulmonary disease) Emphysema, unspecified Laceration of thumb, right Skin cancer Tobacco abuse Surgical History Surgical History History of local excision of skin lesion On the face Family History Family History Mother Hypertension Family history of cardiovascular disease, Onset Age: 43 Acute myocardial infarction, Onset Age: 43 Sibling Family history of cardiovascular disease Family history of lung cancer Patient's sister is in good health Patient's brother is in good health Acute myocardial infarction Family history of chronic obstructive pulmonary disease Family history of malignant neoplasm of brain Social History Social History Social History: The patient is and lives with his . The patient is on full code. The patient used methamphetamines in the past but not currently. His is a durable power [place] attorney. He has 2 children. 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 He denies any alcohol use. Patient continues to smoke about 4 -5 cigarettes a day. Patient continue to smoke marijuana Smoking packs per day: 1 Smoking cigarettes per day: 20.0 Years smoked: 40 Smoking pack-years: 40.00 Smoking status: Current some day smoker Tobacco type: cigarettes Second hand tobacco smoke exposure: No Additional smoking assessment comments: occassionally smokes now Alcohol intake: current Drinks per week: 14 Substance use: current Substance use type: marijuana Gender identity (if verbalized by the patient): Male Spiritual care concerns: No Agree to blood products: Yes Meds Home Medications and Allergies Home Medications Medication Instructions Recorded Confirmed Type fluticasone furoate 100 1 inhalation INHALATION DAILY 05/24/20 01/21/21 History mcg/actuation blister powder for inhalation albuterol sulfate 90 mcg/actuation 1 - 2 inh INHALATION Q4-6H PRN 10/26/20 01/21/21 Rx aerosol inhaler #8.5 gm aspirin 81 mg PO DAILY 11/14/20 01/21/21 History furosemide 40 mg PO BID 11/14/20 01/21/21 History pantoprazole 40 mg PO QAM 11/14/20 01/21/21 History acetazolamide 250 mg PO BID #60 tablet 11/20/20 01/21/21 Rx albuterol sulfate 2.5 mg INHALATION Q6HRT #1 ea 11/20/20 01/21/21 Rx albuterol sulfate [Proventil HFA] 2 puff INHALATION Q6HRT PRN #1 g
[2021-01-22 14:21] LABS: Lactic Acid Reflex 0.6 mmol/L (0.7-2.1)
[2021-01-22] MEDS: IPRATROPIUM BR 0.02% INH SOLN 0.5 MG/2.5 ML VIAL INHALATION ×2 (14:59→20:42)
[2021-01-22] MEDS: ALBUTEROL SULFATE NEB 2.5 MG/3 ML INH INHALATION (14:59)
--- NOTE | 2021-01-22 15:37 | ADMGEN ---
This patient, Jimmy Welch, was admitted to IMU Room 209-01. Patient/family oriented to hospital policies and general routines including ID bracelet, bed and alarms, visiting hours, pain management, procedures, bathroom and other care routines, personal items, smoking policy, room service/diet, and visiting hours. Information on how to activate the Rapid Response Team has been discussed. Patient/Family are encouraged to report perceived risks to care and to ask questions if they do not understand what they are told or what they should do.
--- NOTE | 2021-01-22 15:42 | PM.CNPUL ---
Assessment and Plan Assessment and plan (1) Acute exacerbation of chronic obstructive pulmonary disease: Code(s): J44.1 - Chronic obstructive pulmonary disease with (acute) exacerbation Status: Acute Assessment and Plan: Patient with a history of GOLD grade 3 group D (FEV1=37% predicted with hyperinflation, air trapping and decreased DLCO on 10/06/2019) with bronchioectasis and lower lobe scarring on CT scans from 11/18/19, chronic hypoxic respiratory failure on home oxygen 4 L 24-7, on home noninvasive ventilation for frequent exacerbations, pulmonary hypertension (72 PASP on echo 11/14/20) with enlarged RV with decreased function and enlarged RA, dyspnea on exertion at 20 ft with an M MRC grade 4 on brovana 15 mcg BID, ipratroprium neb 0.5 Q 6, budesonide 05 mg BID and azithro 500 mg TIW. Patient now with COPD exacerbation with increased phlegm production and change in color without worsening cough, NOBLE, SOB or oxygenation. CT scan now with consolidation in lower lobes and pneumonia is possible (no WBC, afebrile) Agree with systemic steroids and will change to prednisone 50 mg PO on 01/23, continue nebulized albuterol 2.5 and ipratroprium 0.5 Q 6 hors for now. Ceftriaxone and azithromycin for possible pneumonia and will de-escalate once cultures negative. Currently on his home dose of 4L NC with saturations 96%. Continue Will order cornet valve for bronchiectasis (on acapella at home). He refuses any use of BiPAP currenlty. Patient states that he does not want intubation but is agreeable to ACLS with CPR and defibrillation up until intubation step. Will follow with you. (2) Hypokalemia: Code(s): E87.6 - Hypokalemia Status: Acute Assessment and Plan: Treatment per hospital team. History of Present Illness History of Present Illness Consult date: 01/22/21 Requesting physician: Arabella Kennedy MD Reason for consult: COPD Chief complaint: hypokalemia Narrative: This is a new pulmonary consult for COPD This is a 55-year-old man with a history of severe COPD with an FEV1 of 37%, air trapping with a residual volume of 149%, DLCO corrected for alveolar volume of 47% on PFTs 10/06/2019. CT scan dating back to 08/15/2019 demonstrates severe upper lobe predominant alexander lobular emphysema, chronic peripheral densities bilaterally right greater than left, severe extensive bronchiectasis and scarring in both lung bases right middle lobe and lingula, pulmonary hypertension with an estimated pulmonary arterial systolic pressure of 72 by echocardiogram on 11/14/2020 with a severely enlarged right ventricle with reduced systolic function and a moderately enlarged right atrium, moderate mitral valve regurg and in large left ventricle with severely reduced function at 25-30%. Patient is has chronic hypoxemic respiratory failure and is on 4 L nasal cannula 24 -7-365 and also has frequent exacerbations requiring a noninvasive ventilator at home which he wears 1 time every week because he cannot tolerate the straps. Patient is maintained on long-acting beta agonist, long-acting muscarinic antagonist and inhaled corticosteroids by nebulization and started on azithromycin 500 mg p.o. Thursday and Thursday approximately 2 months ago. Per the outside hospitals notes on 11/28/2019 the patient has severe dyspnea on exertion and can walk 20 ft on a good day and his M MRC grade is 4. Patient currently was found to be hypokalemic thought to be secondary to poor p.o. intake and was admitted from the emergency department for a potassium of 2.0. When I spoke to the patient today he says that his breathing and shortness of breath are the same as usual and unchanged. He denies any wheezing, fever, chills, rigors, hemoptysis. Patient does state that over the last week he has an increase in his phlegm production and that it has changed to a more yellow green color. He states that he would have not come to the hospital given this in
[2021-01-22 15:47] LABS: Potassium 2.6 mmol/L (3.4-5.0)
--- NOTE | 2021-01-22 16:14 | PM.CNGS ---
Assessment and Plan Assessment and plan (1) Inguinal hernia: Code(s): K40.90 - Unilateral inguinal hernia, without obstruction or gangrene, not specified as recurrent Status: Acute Assessment and Plan: Bilateral inguinal hernias found incidentally on CT scan. Hernias are soft, non-tender, and reducible on exam. These are both asymptomatic and the patient has not had any prior issues or complaints. His inguinal hernias are not playing a role in his acute issues. There is no indication for urgent surgical repair. That being said, acute issues aside, his multiple co-morbidities and new incidental finding of portal hypertension, make him a high risk surgical candidate for repair most likely at his baseline. I have discussed the patient's case and plan of care with Dr. Herrera. We would recommend that he follow-up in our office 6-8 weeks after discharge to assess his suitability for surgery as an outpatient. I discussed with the patient and his symptoms of incarceration or strangulation of his hernias and reasons to return to the ER if they occur. We will sign off at this point. Please let us know if he begins showing any signs of incarceration while inpatient and we would be happy to reassess him, otherwise we will follow-up as an outpatient once he is medically stable. Thank you for allowing us to see the patient in consultation. (2) Bronchiectasis: Code(s): J47.9 - Bronchiectasis, uncomplicated Status: Acute Assessment and Plan: His pulmonary issues are the reason for his hospitalization and what needs to be treated acutely. Pulmonology consulted and following patient. Management per primary team. (3) COPD (chronic obstructive pulmonary disease): Qualifiers: COPD type: unspecified COPD Qualified Code(s): J44.9 - Chronic obstructive pulmonary disease, unspecified Code(s): J44.9 - Chronic obstructive pulmonary disease, unspecified Status: Acute (4) Portal hypertension: Code(s): K76.6 - Portal hypertension Status: Acute Assessment and Plan: Findings on CT and ultrasound suggest portal hypertension. Cirrhosis/ascites would significantly increase risks of surgery. (5) Hypokalemia: Code(s): E87.6 - Hypokalemia Status: Acute (6) Hyponatremia: Code(s): E87.1 - Hypo-osmolality and hyponatremia Status: Acute (7) Tobacco abuse: Code(s): Z72.0 - Tobacco use Status: Chronic Assessment and Plan: Increases risks for surgery. Recommend cessation, which would be imperative pre-operatively as well. (8) Malnutrition: Code(s): E46 - Unspecified protein-calorie malnutrition Status: Acute (9) Alcohol abuse: Code(s): F10.10 - Alcohol abuse, uncomplicated Status: Acute Additional Plan I have discussed the patient's case and plan of care with Dr. Herrera. History of Present Illness Consult details Consult date: 01/22/21 Reason for consult: other (Bilateral inguinal hernias found on CT) Requesting physician: Arabella Kennedy MD Narrative: This is a 55-year-old male with a history of COPD and chronic respiratory failure on 4 L of O2 at home, CHF, and tobacco dependence, who was sent to the emergency department for evaluation of hypokalemia on outpatient labs. The patient has been experiencing poor appetite and about 20 lb weight loss in the last 2 weeks. He overall has not been feeling well. He then presented to his PCP for further evaluation and had outpatient labs ordered. After findings of a potassium less than 2.0 on his labs, he was called and instructed to go to the ER. He also had been reporting increasing shortness of breath and a cough. Chest X-ray showed chronic mixed interstitial and airspace infiltrates on the mid and lower lung zones. CT of the abdomen and pelvis was performed due to abdominal distention and poor appetite. CT suggested no acute intra-abdominal findings, severe bronchiectasis, ca
[2021-01-22] MEDS: POTASSIUM CHLORIDE 20 MEQ PACKET (FOR LIQUID) 40 MEQ PO (18:24)
[2021-01-22] MEDS: methylPREDNISolone SOD SUCC 40 MG VIAL IV PUSH (18:25)
--- NOTE | 2021-01-22 19:09 | PC.NURSE ---
Home medications verified at bedside with the patients .
[2021-01-22] MEDS: ALBUTEROL SULFATE NEB 2.5 MG/0.5 ML INH INHALATION (20:42)
[2021-01-22] MEDS: DOCUSATE SODIUM 100 MG CAPSULE PO (21:09)
[2021-01-23] VITALS (26 sets, daily range): BP systolic 97–109; BP diastolic 64–79; PULSE 87–127; RESP 16–28; TEMP 35.7–36.6; O2SAT 93–100; BMI 17.9
[2021-01-23] MEDS: ALBUTEROL SULFATE NEB 2.5 MG/0.5 ML INH INHALATION ×3 (01:55→20:27)
[2021-01-23] MEDS: IPRATROPIUM BR 0.02% INH SOLN 0.5 MG/2.5 ML VIAL INHALATION ×3 (01:55→20:27)
[2021-01-23 04:42] LABS: Potassium 3.3 mmol/L (3.4-5.0)
[2021-01-23] MEDS: chlordiazePOXIDE (*CRX) 25 MG CAPSULE PO ×5 (05:53→22:44)
--- NOTE | 2021-01-23 08:00 | PM.PNPUL ---
Progress Note: A&P Assessment and Plan (1) Acute exacerbation of chronic obstructive pulmonary disease: Code(s): J44.1 - Chronic obstructive pulmonary disease with (acute) exacerbation Status: Acute Assessment and Plan: Patient with a history of GOLD grade 3 group D (FEV1=37% predicted with hyperinflation, air trapping and decreased DLCO on 10/06/2019) with bronchioectasis and lower lobe scarring on CT scans from 11/18/19, chronic hypoxic respiratory failure on home oxygen 4 L 24-7, on home noninvasive ventilation for frequent exacerbations, pulmonary hypertension (72 PASP on echo 11/14/20) with enlarged RV with decreased function and enlarged RA, dyspnea on exertion at 20 ft with an M MRC grade 4 on brovana 15 mcg BID, ipratroprium neb 0.5 Q 6, budesonide 05 mg BID and azithro 500 mg TIW. 01/22 Patient now with COPD exacerbation with increased phlegm production and change in color without worsening cough, NOBLE, SOB or oxygenation. CT scan now with consolidation in lower lobes and pneumonia is possible (no WBC, afebrile). Agree with systemic steroids and will change to prednisone 50 mg PO on 01/23, continue nebulized albuterol 2.5 and ipratroprium 0.5 Q 6 hors for now. Ceftriaxone and azithromycin for possible pneumonia and will de-escalate once cultures negative. Currently on his home dose of 4L NC with saturations 96%. Will order cornet valve for bronchiectasis (on acapella at home). He refuses any use of BiPAP currenlty. Patient states that he does not want intubation but is agreeable to ACLS with CPR and defibrillation up until intubation step. 01/23 Patient states his SOB, cough and phlegm are back to normal now. Continue prednisone 50 Q day (day 2), continue nebulized albuterol 2.5 and ipratroprium 0.5 Q 6 hors for now. Ceftriaxone and azithromycin for possible pneumonia and will de-escalate once cultures negative for 48 hours. If remains stable overnight ready for discharge 01/24 from pulmonary perspective. Will follow with you. (2) Hypokalemia: Code(s): E87.6 - Hypokalemia Status: Acute Assessment and Plan: Treatment per hospital team. Improved on 01/23 to 3.3. Subjective Date/time seen: 01/23/21 08:00 Interval history: 01/22 This is a 55-year-old man with a history of severe COPD with an FEV1 of 37%, air trapping with a residual volume of 149%, DLCO corrected for alveolar volume of 47% on PFTs 10/06/2019. CT scan dating back to 08/15/2019 demonstrates severe upper lobe predominant alexander lobular emphysema, chronic peripheral densities bilaterally right greater than left, severe extensive bronchiectasis and scarring in both lung bases right middle lobe and lingula, pulmonary hypertension with an estimated pulmonary arterial systolic pressure of 72 by echocardiogram on 11/14/2020 with a severely enlarged right ventricle with reduced systolic function and a moderately enlarged right atrium, moderate mitral valve regurg and in large left ventricle with severely reduced function at 25-30%. Patient is has chronic hypoxemic respiratory failure and is on 4 L nasal cannula 24 -7-365 and also has frequent exacerbations requiring a noninvasive ventilator at home which he wears 1 time every week because he cannot tolerate the straps. Patient is maintained on long-acting beta agonist, long-acting muscarinic antagonist and inhaled corticosteroids by nebulization and started on azithromycin 500 mg p.o. Thursday and Thursday approximately 2 months ago. Per the outside hospitals notes on 11/28/2019 the patient has severe dyspnea on exertion and can walk 20 ft on a good day and his M MRC grade is 4. Patient currently was found to be hypokalemic thought to be secondary to poor p.o. intake and was admitted from the emergency department for a potassium of 2.0. He had change in phlegm and Patient was treated for a possible COPD exacerbation and pneumonia with ceftriaxone, azithromycin, Solu-Medrol, albuterol, and ipratropium in the
[2021-01-23 08:56] LABS: Anion Gap 4 mmol/L (8-16); Blood Urea Nitrogen 11 mg/dL (9-20); Calcium 8.4 mg/dL (8.4-10.2); Carbon Dioxide 30 mmol/L (22-30); Chloride 87 mmol/L (98-107); Estimated CRCL calculation 130 ml/min; Estimated Glomerular Filt Rate > 60; Glucose 152 mg/dL (75-110); Potassium 3.3 mmol/L (3.4-5.0); Sodium 121 mmol/L (137-145)
--- NOTE | 2021-01-23 12:09 | WPDANESEPPF ---
Anes - Initial Pre Proc Eval Procedure: Operation Date: 01/23/21 14:00 Proposed Procedures p Esophagogastroduodenoscopy - Richard Munguia MD Date/Time: 01/23/21 12:09 Surgeon: Claudio Viera MD Pre Op Diagnosis: hypokalemia Patient Data Age: 55 Gender: M Height: 5 ft 9 in Weight: 54.9 kg Last Vital Signs Temp 96.4 F L 01/23/21 08:48 Pulse 105 H 01/23/21 10:00 Resp 19 01/23/21 08:48 BP 104/69 01/23/21 08:48 Pulse Ox 100 01/23/21 08:48 Allergies Allergy/AdvReac Type Severity Reaction Status Date / Time No Known Allergies Allergy Verified 01/23/21 12:55 Home Medications Medication Instructions Recorded Confirmed Type fluticasone furoate 100 1 inhalation INHALATION DAILY 05/24/20 01/22/21 History mcg/actuation blister powder for inhalation furosemide 40 mg PO BID 11/14/20 01/22/21 History pantoprazole 40 mg PO QAM 11/14/20 01/22/21 History acetazolamide 250 mg PO BID #60 tablet 11/20/20 01/22/21 Rx albuterol sulfate 2.5 mg INHALATION Q6HRT #1 ea 11/20/20 01/22/21 Rx albuterol sulfate [Proventil HFA] 2 puff INHALATION Q6HRT PRN #1 g 11/20/20 01/22/21 Rx aspirin 81 mg PO QAM #30 tablet 11/20/20 01/22/21 Rx azithromycin [Zithromax] 500 mg PO MoWeFr@0900 #12 tablet 11/20/20 01/22/21 Rx fluticasone propionate [Flovent 2 puff INHALATION Q12HRT #1 g 11/20/20 01/22/21 Rx HFA] losartan 25 mg tablet 25 mg PO QAM #90 tablet 12/24/20 01/22/21 Rx albuterol sulfate 2.5 mg INHALATION Q4H PRN #360 ml 01/01/21 01/22/21 Rx metoprolol succinate 25 mg 25 mg PO QPM #30 tablet 01/01/21 01/22/21 Rx tablet,extended release 24 hr umeclidinium 62.5 mcg-vilanterol 1 inh INHALATION DAILY #60 ea 01/08/21 01/22/21 Rx 25 mcg/actuation powdr for inhalation baclofen 5 mg tablet 5 mg PO DAILY #30 tablet 01/21/21 01/22/21 Rx Laboratory Tests 01/22/21 01/22/21 01/23/21 13:57 15:18 02:20 Sodium Potassium 2.6 mmol/L L* mmol/L 3.3 mmol/L L mmol/L (3.4-5.0) (3.4-5.0) Chloride Carbon Dioxide Anion Gap BUN Creatinine Estim Creat Clear Calc Estimated GFR Glucose Lactic Acid 0.6 mmol/L L mmol/L (0.7-2.1) Calcium 01/23/21 08:34 Sodium 121 mmol/L L mmol/L (137-145) Potassium 3.3 mmol/L L mmol/L (3.4-5.0) Chloride 87 mmol/L L mmol/L (98-107) Carbon Dioxide 30 mmol/L mmol/L (22-30) Anion Gap 4 mmol/L L mmol/L (8-16) BUN 11 mg/dL D mg/dL (9-20) Creatinine 0.40 mg/dL L mg/dL (0.7-1.3) Estim Creat Clear Calc 130 ml/min ml/min Estimated GFR > 60 (59 - ) Glucose 152 mg/dL H mg/dL (75-110) Lactic Acid Calcium 8.4 mg/dL mg/dL (8.4-10.2) Patient hx anesthesia problems: none Family hx anesthesia problems: none [facility] Past Medical History Medical History CHF (congestive heart failure) Chronic malnutrition COPD (chronic obstructive pulmonary disease) Emphysema, unspecified Laceration of thumb, right Skin cancer Tobacco abuse Surgical History Surgical History History of local excision of skin lesion On the face Family History Family History Mother Hypertension Family history of cardiovascular disease, Onset Age: 43 Acute myocardial infarction, Onset Age: 43 Sibling Family history of cardiovascular disease Family history of lung cancer Patient's sister is in good health Patient's brother is in good health Acute myocardial infarction Family history of chronic obstructive pulmonary disease Family history of malignant neoplasm of brain Social History Social History Social History: The patient is and live
[2021-01-23] MEDS: LACTATED RINGERS 1,000 ML 150 ML IV CONT (13:29)
--- NOTE | 2021-01-23 13:50 | PM.IMPN ---
Progress Note: A&P Assessment and Plan (1) Hypokalemia: Code(s): E87.6 - Hypokalemia Status: Acute Assessment and Plan: Pt potassium is 2 replace potassium and recheck level likely secondary to malnutrition and recent ill health Continue potassium supplements (2) Abnormal weight loss: Code(s): R63.4 - Abnormal weight loss Status: Acute Assessment and Plan: Pt had ct chest and ct abdomen. CT chest showing bronchiectasis and atypical pneumonia. CT abdo showing hepatic steatosis and possible portal hypertension. Moderate colonic stool and diverticulosis. Inguinal hernias, larger on the right containing nonobstructed small bowel. Consult Pulmology, GI and surgery. Dietary consult also made for weight loss. 01/23/21 13:50 patient is a 55-year-old male with history of severe COPD and emphysema he was sent to emergency by his primary physician and is found to potassium of 2, potassium was supplement, and hyponatremia most likely secondary alcohol abuse will consult field service tech for further recommendation, as well as exacerbation of COPD and suspect the patient may have atypical pneumonia, patient still smokes and drinks alcohol and GI is consulted for further recommendation, patient also has bilateral inguinal hernia patient was seen by surgery service and does not recommend any surgical intervention due to severe COPD currently smoking and alcohol abuse, patient seen by spool maker patient is started on prednisone, and and updraft as needed, currently patient states is feeling little better compared to when he arrived not a short of breath, denies any chest pain palpitation fever or chills. (3) Chronic malnutrition: Code(s): E46 - Unspecified protein-calorie malnutrition Status: Chronic Assessment and Plan: Consult manager sterile, add ensures to diet, pt is a known to drink alcohol daily and has been eating less. (4) COPD (chronic obstructive pulmonary disease): Qualifiers: COPD type: unspecified COPD Qualified Code(s): J44.9 - Chronic obstructive pulmonary disease, unspecified Code(s): J44.9 - Chronic obstructive pulmonary disease, unspecified Status: Acute Assessment and Plan: Continue Oxygen, add steroids, breathing treatments, watch respiratory status, pulmology consulted. (5) Bronchiectasis: Code(s): J47.9 - Bronchiectasis, uncomplicated Status: Acute Assessment and Plan: Consult pulmology for new diagnosis of bronchiectasis, sputum and Bc ordered (6) Tobacco abuse: Code(s): Z72.0 - Tobacco use Status: Chronic Assessment and Plan: Pt adviced to stop smoking, smoking cessation adviced, counselled more than 5 minutes in the hospital (7) Portal hypertension: Code(s): K76.6 - Portal hypertension Status: Acute Assessment and Plan: Secondary to alcoholism, I will order US of abdomen, LFTs ordered, I will consult GI. (8) Alcohol abuse: Code(s): F10.10 - Alcohol abuse, uncomplicated Status: Acute Assessment and Plan: Pt advised abstinence, I will start CIWA protocol and watch for DTs. (9) Atypical pneumonia: Code(s): J18.9 - Pneumonia, unspecified organism Status: Acute Assessment and Plan: I will order Bc and sputum culture and Add Iv rocephin and iv azithromycin (10) Hyponatremia: Code(s): E87.1 - Hypo-osmolality and hyponatremia Status: Acute Assessment and Plan: Sodium is 124, Continue to watch maybe related to atypical pneumonia or beer hyponatremia continue to watch. (11) Weakness: Code(s): R53.1 - Weakness Status: Acute Assessment and Plan: PT/OT ordered for patient (12) Inguinal hernia: Code(s): K40.90 - Unilateral inguinal hernia, without obstruction or gangrene, not specified as recurrent Status: Acute Assessment and Plan: Surgery consult made. Hernias not fully examined,No s
--- NOTE | 2021-01-23 13:51 | WPDGICN ---
Assessment and Plan Assessment and plan (1) Malnutrition: Code(s): E46 - Unspecified protein-calorie malnutrition Status: Acute Assessment and Plan: he is alcoholic and also smoker with advanced COPD, both conditions can contribute to condition will assess with EGD (also report of possible portal hypertension)- will assess if varices or changes consistent with PHG/cirrhosis given excessive alcohol use (2) Alcohol abuse: Code(s): F10.10 - Alcohol abuse, uncomplicated Status: Acute Assessment and Plan: he needs to quit/rehab mvi, thiamine, nutrition consult monitor for etoh withdrawal (3) Portal hypertension: Code(s): K76.6 - Portal hypertension Status: Acute Assessment and Plan: will assess with EGD to rule out (4) COPD (chronic obstructive pulmonary disease): Qualifiers: COPD type: unspecified COPD Qualified Code(s): J44.9 - Chronic obstructive pulmonary disease, unspecified Code(s): J44.9 - Chronic obstructive pulmonary disease, unspecified Status: Acute Assessment and Plan: advanced, pulmonary on board (5) Hypokalemia: Code(s): E87.6 - Hypokalemia Status: Acute Assessment and Plan: treating (6) Inguinal hernia: Code(s): K40.90 - Unilateral inguinal hernia, without obstruction or gangrene, not specified as recurrent Status: Acute (7) Weakness: Code(s): R53.1 - Weakness Status: Acute GI Consult Note Consult date/time: 01/23/21 13:51 Reason for consult: alcohol abuse, poor appetite, fatty liver with possible portal hypertension HPI: Jimmy Welch is a 55 year old male with history of COPD and chronic respiratory failure on 4 L of O2 at home, CHF, smoker, alcoholic (about 1/2 pint dailly for several years) here after doctor found that had significant hypokalemia.He has not been eating much for 2-3 weeks, also lost some weight about 20 lb and just generalized weakness. His potassium was 2 and has been treated. Platelets normal, transaminases 40-50, hb 12. Chest X-ray showed chronic mixed interstitial and airspace infiltrates on the mid and lower lung zones. CT scan of the abdomen and pelvis reviewed, showed severe bronchiectasis, mucous plugging and basilar atelectasis/scarring, bilateral inguinal hernias and also suggestion portal hypertension. He had a colonoscopy about 5 years ago or so, he was told to come back after 10 years. Review of Systems Constitutional: Constitutional: Reports poor appetite, Reports weakness and Reports weight loss Eyes: Eyes: Reports no additional eye complaints ENT: Reports Normal hearing present Cardiovascular: Cardiovascular: Reports no additional cardiovascular complaints Respiratory: Respiratory: Reports cough and Reports dyspnea Gastrointestinal: Gastrointestinal: Reports no additional gastrointestinal complaints Genitourinary: Genitourinary: Denies dysuria Musculoskeletal: Musculoskeletal: Reports no additional musculoskeletal complaints Neurologic: Denies confusion Psychiatric: Psychiatric: Reports no additional psychiatric complaints PENDING SALE TO [facility] Past Medical History Medical History (Updated 01/22/21 @ 16:37 by SAADIA Kunz) CHF (congestive heart failure) Chronic malnutrition COPD (chronic obstructive pulmonary disease) Emphysema, unspecified Laceration of thumb, right Skin cancer Tobacco abuse Surgical History Surgical History History of local excision of skin lesion On the face Family History Family History Mother Hypertension Family history of cardiovascular disease, Onset Age: 43 Acute myocardial infarction, Onset Age: 43 Sibling Family history of cardiovascular disease Family history of lung cancer Patient's sister is in good health Patient's brother is in good health Acute m
[2021-01-23] MEDS: FOLIC ACID 1 MG TABLET PO (15:06)
[2021-01-23] MEDS: THIAMINE HCL 100 MG TABLET PO (15:06)
[2021-01-23] MEDS: ENOXAPARIN 40 MG/0.4 ML SYRINGE SUB-Q (15:09)
[2021-01-23] MEDS: POTASSIUM CHLORIDE 20 MEQ TABLET 40 MEQ PO (15:35)
[2021-01-23] MEDS: POTASSIUM CHLORIDE 20 MEQ PACKET (FOR LIQUID) 40 MEQ PO ×2 (15:35→17:16)
[2021-01-23] MEDS: LACTULOSE 20 GM/30 ML UDC PO (15:35)
[2021-01-23] MEDS: DOCUSATE SODIUM 100 MG CAPSULE PO ×2 (15:36→20:54)
[2021-01-23] MEDS: predniSONE 40 MG, predniSONE 10 MG 50 MG PO (15:36)
--- NOTE | 2021-01-23 16:26 | PM.CNNEP ---
Assessment and Plan Assessment and plan (1) Hyponatremia: Code(s): E87.1 - Hypo-osmolality and hyponatremia Status: Acute Assessment and Plan: multifactorial etiology: - alcohol abuse with associated beer potomania - significant lung disease/COPD/emphysema - possible pneumonia - ongoing smoking - possible pre-renal factors worsened by diuretic use check urine electrolytes for completeness, check TSH, cortisol, SPEP, UPEP, as well as serum/urine osmolality follow trend of sodium (2) Hypokalemia: Code(s): E87.6 - Hypokalemia Status: Acute Assessment and Plan: suspect due to total potassium body store depletion given poor oral intake replete as needed follow magnesium and replete as needed follow repeat K+ levels Will continue to follow History of Present Illness Reason for Consult Consult date: 01/23/21 Reason for consult: hyponatremia and hypokalemia Chief Complaint Chief complaint: hypokalemia History of Present Illness Narrative: The patient is a 55 y/o male with a past medical history as outlined below who presented to [facility] ER with reported abnormal labs, specifically, low potassium. The patient apparently saw his primary care physician the day before admission for 3 week history of poor appetite in association with significant weight loss. Routine blood tests were done after that office visit that demonstrated his severe hypokalemia. He was instructed by his primary care physician to come to the ER as he would likely require admission for ongoing supplementation of this electrolyte abnormality. Upon presentation to the emergency room, he was noted to be hemodynamically stable and repeat labs confirmed the presence of severe hypokalemia but also demonstrated hyponatremia. Given his significant problems with poor appetite in association with weight loss, he underwent a CT scan of the abdomen pelvis which was only remarkable for bilateral inguinal hernias as well as the possible suggestion of portal gastropathy. Upon further questioning to the patient, he did report that he has been drinking more alcohol than normal more so because food does not have any taste to it. Given his electrolyte abnormalities and abnormal weight loss, he was admitted the hospital for further evaluation and therapy. Since his admission, he has been seen by Gastroenterology with regard to his abnormal weight loss and concern for possible portal gastropathy with the concern this could be secondary to his alcohol abuse. He subsequently underwent EGD that was unremarkable. Surgeries also seen the patient regarding his bilateral inguinal hernias but given his significant medical issues and problems, he was not felt to be a candidate for surgical intervention unless this issue became life-threatening. Renal consultation was requested due to his hypokalemia as well as hyponatremia. Despite aggressive repletion of his potassium, his potassium still remains under suboptimal control and his sodium level has been slowly worsening since admission. His sodium went from 10/21 down to its most recent value of 121. As far as I can tell, he does not appear to have any type of neurological sequelae secondary to his hyponatremia and presumably this is an acute finding rather than chronic but is difficult to say for sure. He otherwise does not appear to be any acute distress but does appear to be chronically ill. Review of Systems Review of Systems: Narrative: As per HPI. [facility] Past Medical History Medical History (Updated 01/23/21 @ 14:14 by Richard Munguia MD) CHF (congestive heart failure) Chronic malnutrition COPD (chronic obstructive pulmonary disease) Emphysema, unspecified Laceration of thumb, right Skin cancer Tobacco abuse Surgical History Surgical History (Reviewed 01/22/21 @ 16:32 by Leslie Toledo
[2021-01-23 22:48] LABS: Creatinine Urine 51.2 mg/dL; Total Protein Urine Random 17 mg/dL; Ur Ttl Prot Creatinine Ratio 0.33 mg/mg (0-0.20)
[2021-01-23 22:49] LABS: Creatinine Urine 51.5 mg/dL
[2021-01-23 23:53] LABS: Sodium Urine Random < 5 meq/L
[2021-01-24] VITALS (22 sets, daily range): BP systolic 94–104; BP diastolic 62–72; PULSE 85–124; RESP 18–28; TEMP 36.1–36.3; O2SAT 94–100
[2021-01-24] MEDS: ALBUTEROL SULFATE NEB 2.5 MG/0.5 ML INH INHALATION ×4 (02:14→20:27)
[2021-01-24] MEDS: IPRATROPIUM BR 0.02% INH SOLN 0.5 MG/2.5 ML VIAL INHALATION ×4 (02:14→20:27)
[2021-01-24 05:32] LABS: Hematocrit 33.1 % (42.0-52.0); Hemoglobin 11.2 g/dL (14.0-18.0); Mean Corpuscular HGB Conc 33.8 g/dl (32-36); Mean Corpuscular Hemoglobin 34.1 pg (26-34); Mean Corpuscular Volume 100.9 fl (80-100); Mean Platelet Volume 9.8 fl (7.4-10.4); Platelet Count Result 211 k/mm3 (150-375); Red Blood Count 3.28 M/mm3 (4.6-6.20); White Blood Count 10.7 K/mm3 (4.5-10.0)
[2021-01-24] MEDS: chlordiazePOXIDE (*CRX) 25 MG CAPSULE PO ×3 (05:38→17:37)
[2021-01-24 05:49] LABS: Magnesium 1.7 mg/dL (1.6-2.3)
[2021-01-24] MEDS: UMECLIDINIUM/VILANTEROL 62.5-25 MCG ELLIPTA 1 PUFF INHALATION (09:35)
[2021-01-24] MEDS: FOLIC ACID 1 MG TABLET PO (09:38)
[2021-01-24] MEDS: ENOXAPARIN 40 MG/0.4 ML SYRINGE SUB-Q (09:38)
[2021-01-24] MEDS: DOCUSATE SODIUM 100 MG CAPSULE PO ×2 (09:38→20:04)
[2021-01-24] MEDS: THIAMINE HCL 100 MG TABLET PO (09:40)
[2021-01-24] MEDS: POTASSIUM CHLORIDE 20 MEQ PACKET (FOR LIQUID) 40 MEQ PO (09:40)
[2021-01-24] MEDS: LACTULOSE 20 GM/30 ML UDC PO (10:27)
[2021-01-24] MEDS: predniSONE 40 MG, predniSONE 10 MG 50 MG PO (10:27)
--- NOTE | 2021-01-24 11:12 | PM.PNPUL ---
Progress Note: A&P Assessment and Plan (1) Acute exacerbation of chronic obstructive pulmonary disease: Code(s): J44.1 - Chronic obstructive pulmonary disease with (acute) exacerbation Status: Acute Assessment and Plan: Patient with a history of GOLD grade 3 group D (FEV1=37% predicted with hyperinflation, air trapping and decreased DLCO on 10/06/2019) with bronchioectasis and lower lobe scarring on CT scans from 11/18/19, chronic hypoxic respiratory failure on home oxygen 4 L 24-7, on home noninvasive ventilation for frequent exacerbations, pulmonary hypertension (72 PASP on echo 11/14/20) with enlarged RV with decreased function and enlarged RA, dyspnea on exertion at 20 ft with an M MRC grade 4 on brovana 15 mcg BID, ipratroprium neb 0.5 Q 6, budesonide 05 mg BID and azithro 500 mg TIW. 01/22 Patient now with COPD exacerbation with increased phlegm production and change in color without worsening cough, NOBLE, SOB or oxygenation. CT scan now with consolidation in lower lobes and pneumonia is possible (no WBC, afebrile). Agree with systemic steroids and will change to prednisone 50 mg PO on 01/23, continue nebulized albuterol 2.5 and ipratroprium 0.5 Q 6 hors for now. Ceftriaxone and azithromycin for possible pneumonia and will de-escalate once cultures negative. Currently on his home dose of 4L NC with saturations 96%. Will order cornet valve for bronchiectasis (on acapella at home). He refuses any use of BiPAP currently. Patient states that he does not want intubation but is agreeable to ACLS with CPR and defibrillation up until intubation step. 01/23 Patient states his SOB, cough and phlegm are back to normal now. Continue prednisone 50 Q day (day 2), continue nebulized albuterol 2.5 and ipratroprium 0.5 Q 6 hors for now. Ceftriaxone and azithromycin for possible pneumonia and will de-escalate once cultures negative for 48 hours. If remains stable overnight ready for discharge 01/24 from pulmonary perspective. 01/24 States breathing back to baseline, phlegm is normal and minimal now, saturations 98% on 4 L NC. No wheezes. Blood cultures negative. Continue prednisone 50 Q day (day 3 of 5), continue nebulized albuterol 2.5 and ipratroprium 0.5 Q 6 hours for now. Ceftriaxone and azithromycin for possible pneumonia and will de-escalate once cultures negative for 48 hours. Patient ready for discharge from pulmonary perspective: Continue azithromycin for total 5 days and continue ceftriaxone while in patient status for total 7 days and if discharged complete the remaining days with levaquin 750 PO Q day Prednisone 50 mg PO Q day for 5 days total (last dose on 01/26) Restart home bronchodilator regimen with Brovana 15 mcg neb BID Ipratroprium neb 0.5mg Q 6 hours Budesonide 0.5 mg neb BID 4L NC oxygen 20/04 Follow up with his pulmonary team at [place] in 2-[address] Monroe, will sign off, call with questions. (2) Hypokalemia: Code(s): E87.6 - Hypokalemia Status: Acute Assessment and Plan: Treatment per hospital team. Improved on 01/23 to 3.3. Subjective Date/time seen: 01/24/21 11:12 Interval history: 01/22 This is a 55-year-old man with a history of severe COPD with an FEV1 of 37%, air trapping with a residual volume of 149%, DLCO corrected for alveolar volume of 47% on PFTs 10/06/2019. CT scan dating back to 08/15/2019 demonstrates severe upper lobe predominant alexander lobular emphysema, chronic peripheral densities bilaterally right greater than left, severe extensive bronchiectasis and scarring in both lung bases right middle lobe and lingula, pulmonary hypertension with an estimated pulmonary arterial systolic pressure of 72 by echocardiogram on 11/14/2020 with a severely enlarged right ventricle with reduced systolic function and a moderately enlarged right atrium, moderate mitral valve regurg and in large left ventricle with severely reduced function at 25-30%. Patient is has chronic hypoxemic respiratory f
--- NOTE | 2021-01-24 12:25 | PM.IMPN ---
Progress Note: A&P Assessment and Plan (1) Hypokalemia: Code(s): E87.6 - Hypokalemia Status: Acute Assessment and Plan: Pt potassium is 2 replace potassium and recheck level likely secondary to malnutrition and recent ill health Continue potassium supplements (2) Abnormal weight loss: Code(s): R63.4 - Abnormal weight loss Status: Acute Assessment and Plan: Pt had ct chest and ct abdomen. CT chest showing bronchiectasis and atypical pneumonia. CT abdo showing hepatic steatosis and possible portal hypertension. Moderate colonic stool and diverticulosis. Inguinal hernias, larger on the right containing nonobstructed small bowel. Consult Pulmology, GI and surgery. Dietary consult also made for weight loss. 01/23/21 13:50 patient is a 55-year-old male with history of severe COPD and emphysema he was sent to emergency by his primary physician and is found to potassium of 2, potassium was supplement, and hyponatremia most likely secondary alcohol abuse will consult gold charmer for further recommendation, as well as exacerbation of COPD and suspect the patient may have atypical pneumonia, patient still smokes and drinks alcohol and GI is consulted for further recommendation, patient also has bilateral inguinal hernia patient was seen by surgery service and does not recommend any surgical intervention due to severe COPD currently smoking and alcohol abuse, patient seen by quiller machine fixer patient is started on prednisone, and and updraft as needed, currently patient states is feeling little better compared to when he arrived not a short of breath, denies any chest pain palpitation fever or chills. 01/24 today patient states feeling little better not a short of breath patient was seen by pulmonology stated patient is now his baseline recommended to continue azithromycin total of 5 days and Rocephin total for 7 days and complete 5 day course of prednisone, patient is seen by GI stated most of patient's symptoms are stemming from alcohol abuse recommended to stop alcohol, also seen nephrology for hyponatremia and workup is progress, [facility] patient states will continue to monitor will follow the recommended from GI and Nephrology and further recommendation to follow (3) Chronic malnutrition: Code(s): E46 - Unspecified protein-calorie malnutrition Status: Chronic Assessment and Plan: Consult merry go round attendant, add ensures to diet, pt is a known to drink alcohol daily and has been eating less. (4) COPD (chronic obstructive pulmonary disease): Qualifiers: COPD type: unspecified COPD Qualified Code(s): J44.9 - Chronic obstructive pulmonary disease, unspecified Code(s): J44.9 - Chronic obstructive pulmonary disease, unspecified Status: Acute Assessment and Plan: Continue Oxygen, add steroids, breathing treatments, watch respiratory status, pulmology consulted. (5) Bronchiectasis: Code(s): J47.9 - Bronchiectasis, uncomplicated Status: Acute Assessment and Plan: Consult pulmology for new diagnosis of bronchiectasis, sputum and Bc ordered (6) Tobacco abuse: Code(s): Z72.0 - Tobacco use Status: Chronic Assessment and Plan: Pt adviced to stop smoking, smoking cessation adviced, counselled more than 5 minutes in the hospital (7) Portal hypertension: Code(s): K76.6 - Portal hypertension Status: Acute Assessment and Plan: Secondary to alcoholism, I will order US of abdomen, LFTs ordered, I will consult GI. (8) Alcohol abuse: Code(s): F10.10 - Alcohol abuse, uncomplicated Status: Acute Assessment and Plan: Pt advised abstinence, I will start CIWA protocol and watch for DTs. (9) Atypical pneumonia: Code(s): J18.9 - Pneumonia, unspecified organism Status: Acute Assessment and Plan: I will order Bc and sputum culture and Add Iv rocephin and iv azithromycin (10) Hyponatremia: Cod
--- NOTE | 2021-01-24 14:27 | ECG_ITS ---
Measurements Intervals [place] Rate: 119 P: 55 CO: 178 QRS: -41 QRSD: 120 T: 144 QT: 327 QTc: 460 Interpretive Statements SINUS TACHYCARDIA POSSIBLE LEFT ATRIAL ENLARGEMENT LEFT AXIS DEVIATION INCOMPLETE RIGHT BUNDLE BRANCH BLOCK NONSPECIFIC ST & T-WAVE ABNORMALITY- HIGH LATERAL LEADS BASELINE ARTIFACT- I, III, AVL, V1, V3, V6 ABNORMAL ECG Electronically Signed On 01-24-2021 15:06:11 CDT by Rogers Calderon D.O.
[2021-01-24 14:37] LABS: Anion Gap 2 mmol/L (8-16); Blood Urea Nitrogen 13 mg/dL (9-20); Calcium 8.5 mg/dL (8.4-10.2); Carbon Dioxide 29 mmol/L (22-30); Chloride 93 mmol/L (98-107); Estimated CRCL calculation 114 ml/min; Estimated Glomerular Filt Rate > 60; Glucose 128 mg/dL (75-110); Potassium 4.9 mmol/L (3.4-5.0); Sodium 124 mmol/L (137-145)
--- NOTE | 2021-01-24 15:53 | PM.PNNEP ---
Progress Note: A&P Assessment and Plan (1) Hyponatremia: Code(s): E87.1 - Hypo-osmolality and hyponatremia Status: Acute Assessment and Plan: multifactorial etiology: - alcohol abuse with associated beer potomania - significant lung disease/COPD/emphysema - possible pneumonia - ongoing smoking - possible pre-renal factors worsened by diuretic use check urine electrolytes TSH okay, SPEP/UPEP and serum/urine osmolality pending urine electrolytes c/w prerenal azotemia cortisol low but on prednisone so interpretation difficult -- may need to recheck when off steroids follow trend of sodium - slow improvement with PRN IV normal saline - consider adding low dose salt tabs (2) Hypokalemia: Code(s): E87.6 - Hypokalemia Status: Acute Assessment and Plan: doing better suspect due to total potassium body store depletion given poor oral intake replete as needed nebulizer treatments contributing (?) follow magnesium and replete as needed follow repeat K+ levels (3) COPD (chronic obstructive pulmonary disease): Qualifiers: COPD type: unspecified COPD Qualified Code(s): J44.9 - Chronic obstructive pulmonary disease, unspecified Code(s): J44.9 - Chronic obstructive pulmonary disease, unspecified Status: Acute Assessment and Plan: quite severe Pulmonary following continue current therapy (oxygen, nebs, steroids, antibiotics...etc). Will continue to follow. Subjective Date/time seen: 01/24/21 15:53 Appears to be eating more with relative stability in his potassium level by AM labs; no other apparent issues to report at this time; breathing/respiratoyr status appears stable if not better. Exam Narrative: Exam Narrative: General: chronically ill appearing malnoursihed male in NAD Heart: normal S1 and S2; no rub; tacycardic Lungs: coarse breath sounds throughout Abdomen: soft, nontender, nondistended, positive bowel sounds Extremities: no cyanosis or clubbing; no edema Skin: warm and dry Objective Data Vital Signs Vital Signs: Vital Signs Temp Pulse Pulse Resp BP Pulse Ox 01/24/21 14:07 121 H 20 01/24/21 14:00 122 H 01/24/21 13:57 124 H 20 01/24/21 12:00 36.1 C L 117 H 122 H 18 94/62 L 100 01/24/21 10:00 120 H 01/24/21 08:40 118 H 20 01/24/21 08:24 111 H 20 97 01/24/21 08:00 36.2 C L 121 H 111 H 18 99/64 L 100 01/24/21 06:00 98 01/24/21 04:00 36.3 C L 91 18 103/72 98 01/24/21 02:22 89 22 H 01/24/21 02:16 92 24 H 01/24/21 02:00 86 01/24/21 00:00 92 96 01/23/21 23:18 36.3 C L 98 16 98/68 L 100 01/23/21 22:00 107 H 01/23/21 20:40 111 H 26 H 01/23/21 20:30 113 H 28 H 96 01/23/21 20:00 100 96 01/23/21 19:53 36.5 C 115 H 20 97/64 L 96 01/23/21 18:00 114 H Intake/Output Intake/Output: Intake & Output 01/21/21 01/22/21 01/23/21 01/24/21 23:59 23:59 23:59 23:59 Intake Total 1290 1790 1620 Output Total 225 1800 541 Balance 1065 -10 1079 Meds/Results Medications: Active Medications Generic Name Dose Route Start Last Admin Trade Name Jerzy PRN Reason Stop Dose Admin Acetazolamide 250 mg 01/25/21 09:00 Acetazolamide Tab 250 Mg Tablet PO DAILY VANESSA Albuterol 2.5 mg 01/22/21 20:00 01/24/21 13:56 Albuterol Sulfate Neb 2.5 Mg/0.5 Ml Inh INHALATION 2.5 mg Q6HRT VANESSA Administration Aspirin 81 mg 01/25/21 09:00 Aspirin 81 Mg Enteric Tablet PO QAM VANESSA Baclofen 5 mg 01/25/21 09:00 Baclofen 5 Mg Tablet PO DAILY VANESSA Chlordiazepoxide HCl 25 mg 01/23/21 00:00 01/24/21 12:46 Chlordiazepoxide (*Crx) 25 Mg Capsule PO 25 mg Q6H VANESSA Administration Docusate Sodium 100 mg 01/22/21 21:00 01/24/21 09:38 Docusate Sodium 100 Mg Capsule PO
[2021-01-24] MEDS: METOPROLOL SUCCINATE EXT REL 12.5 MG TABCR PO (16:33)
--- NOTE | 2021-01-24 17:12 | WPDGIPROGNO ---
Progress Note: A&P Assessment and Plan (1) Gastritis: Code(s): K29.70 - Gastritis, unspecified, without bleeding Status: Acute Assessment and Plan: egd only mild gastritis without signs of portal hypertension or varices will follow from [place], call if questions (2) Alcohol abuse: Code(s): F10.10 - Alcohol abuse, uncomplicated Status: Acute Assessment and Plan: he needs to quit he is malnourished, presented with failure to thrive, weight loss and electrolytes abnormalities (3) Malnutrition: Code(s): E46 - Unspecified protein-calorie malnutrition Status: Acute Assessment and Plan: nutrition support, replacing low k (4) Hyponatremia: Code(s): E87.1 - Hypo-osmolality and hyponatremia Status: Acute Assessment and Plan: ? siad (severe copd), nephrology on board (5) Weakness: Code(s): R53.1 - Weakness Status: Acute (6) COPD exacerbation: Code(s): J44.1 - Chronic obstructive pulmonary disease with (acute) exacerbation Status: Acute (7) Abnormal weight loss: Code(s): R63.4 - Abnormal weight loss Status: Acute Subjective Date/time seen: 01/24/21 17:12 Interval history: eating more, no new issues Review of Systems Review of Systems: All systems reviewed & are unremarkable except as noted in HPI and below Exam Const: General: no acute distress and ill appearing chronically Other: cachectic HENMT: General nose exam: Normal nares present Eyes: General: appearance normal, both eyes and all related structures Neck: Neck: supple Resp: Auscultation: rales (few rales) and diminished lung sounds Cardio: Rate: regular rate GI: Inspection: non-distended GI Palp: Yes Soft to palpation, No Firmness to palpation present (GI) and No Guarding due to palpation present (GI) Auscultation: normal bowel sounds Skin: General skin exam: normal color Neuro: Speech: normal speech Motor exam (neuro): Normal motor muscle tone present throughout Extrem: General: normal to inspection Psych: Mental Status: mental status grossly normal Objective Data Vital Signs Vital Signs: Vital Signs - 24 hr 01/23/21 18:00 01/23/21 19:53 01/23/21 20:00 Temperature 97.7 F Pulse Rate 114 H 115 H 100 Pulse Rate [Monitor] Respiratory Rate 20 Blood Pressure 97/64 L Pulse Oximetry 96 96 01/23/21 20:30 01/23/21 20:40 01/23/21 22:00 Temperature Pulse Rate 113 H 111 H 107 H Pulse Rate [Monitor] Respiratory Rate 28 H 26 H Blood Pressure Pulse Oximetry 96 01/23/21 23:18 01/24/21 00:00 01/24/21 02:00 Temperature 97.4 F L Pulse Rate 98 92 86 Pulse Rate [Monitor] Respiratory Rate 16 Blood Pressure 98/68 L Pulse Oximetry 100 96 01/24/21 02:16 01/24/21 02:22 01/24/21 04:00 Temperature 97.3 F L Pulse Rate 92 89 91 Pulse Rate [Monitor] Respiratory Rate 24 H 22 H 18 Blood Pressure 103/72 Pulse Oximetry 98 01/24/21 06:00 01/24/21 08:00 01/24/21 08:24 Temperature 97.2 F L Pulse Rate 98 121 H 111 H Pulse Rate [Monitor] 111 H Respiratory Rate 18 20 Blood Pressure 99/64 L Pulse Oximetry 100 97 01/24/21 08:40 01/24/21 10:00 01/24/21 12:00 Temperature 96.9 F L Pulse Rate 118 H 120 H 117 H Pulse Rate [Monitor] 122 H Respiratory Rate 20 18 Blood Pressure 94/62 L Pulse Oximetry 100 01/24/21 13:57 01/24/21 14:00 01/24/21 14:07 Temperature Pulse Rate 124 H 122 H 121 H Pulse Rate [Monitor] Respiratory Rate 20 20 Blood Pressure Pulse Oximetry 01/24/21 16:00 01/24/21 16:33 Temperature 97 F L Pulse Rate 111 H 115 H Pulse Rate [Monitor] 120 H Respiratory Rate 22 H Blood Pressure 104/66 Pulse Oximetry 100 Intake/Output Intake/Output: Intake & Output 01/21/21 01/22/21 01/23/21 01/24/21 23:59 23:59 23:59 23:59 Intake Total 1290 1790 1620 Output Total 225 1800 541 Balance 1065 -10 1079 Meds/Results Medicati
[2021-01-24] MEDS: METOPROLOL SUCCINATE EXT REL 25 MG TABCR PO (17:36)
[2021-01-24 19:08] LABS: Sodium 123 mmol/L (137-145)
--- NOTE | 2021-01-24 19:37 | PC.NURSE ---
Notified Dr. Cancino of patient sodium level 123. Ordered for carrier fluids of antibiotics Ceftriaxone and azithromycin to be change to Normal Saline. Pharmacy has been notified. Dr. Cancino ordered Normal Saline to run for 4 hours at 75 mls for a total of 300 mls and a sodium recheck to be ordered 1 hour after completion.
[2021-01-24] MEDS: SODIUM CHLORIDE 0.9% IV 500 ML 75 ML IV CONT (20:05)
[2021-01-24] MEDS: FLUTICASONE PROP 110 MCG INHALER 12 GM (*SP) 2 PUFF INHALATION (20:30)
[2021-01-25] VITALS (31 sets, daily range): BP systolic 78–100; BP diastolic 42–70; PULSE 80–111; RESP 18–32; TEMP 36.2–36.6; O2SAT 8–100
[2021-01-25] MEDS: chlordiazePOXIDE (*CRX) 25 MG CAPSULE PO ×3 (00:08→14:04)
[2021-01-25 02:15] LABS: Sodium 126 mmol/L (137-145)
[2021-01-25] MEDS: ALBUTEROL SULFATE NEB 2.5 MG/0.5 ML INH INHALATION ×4 (02:29→20:01)
[2021-01-25] MEDS: IPRATROPIUM BR 0.02% INH SOLN 0.5 MG/2.5 ML VIAL INHALATION ×4 (02:29→20:02)
[2021-01-25 05:20] LABS: Hematocrit 36.4 % (42.0-52.0); Hemoglobin 11.8 g/dL (14.0-18.0); Mean Corpuscular HGB Conc 32.4 g/dl (32-36); Mean Corpuscular Hemoglobin 35.2 pg (26-34); Mean Corpuscular Volume 108.7 fl (80-100); Mean Platelet Volume 9.4 fl (7.4-10.4); Platelet Count Result 233 k/mm3 (150-375); Red Blood Count 3.35 M/mm3 (4.6-6.20); Red Cell Distribution Width 12.7 % (11.5-14.5); White Blood Count 8.8 K/mm3 (4.5-10.0)
[2021-01-25 05:34] LABS: Anion Gap 0 mmol/L (8-16); Blood Urea Nitrogen 13 mg/dL (9-20); Calcium 8.4 mg/dL (8.4-10.2); Carbon Dioxide 29 mmol/L (22-30); Chloride 95 mmol/L (98-107); Estimated CRCL calculation 138 ml/min; Estimated Glomerular Filt Rate > 60; Glucose 89 mg/dL (75-110); Magnesium 1.6 mg/dL (1.6-2.3); Potassium 4.9 mmol/L (3.4-5.0); Sodium 124 mmol/L (137-145)
[2021-01-25] MEDS: SODIUM CHLORIDE 0.9% IV 250 ML 75 ML IV CONT (06:58)
[2021-01-25] MEDS: UMECLIDINIUM/VILANTEROL 62.5-25 MCG ELLIPTA 1 PUFF INHALATION (08:42)
[2021-01-25] MEDS: predniSONE 40 MG, predniSONE 10 MG 50 MG PO (08:42)
[2021-01-25] MEDS: LOSARTAN POTASSIUM 25 MG TABLET PO (08:42)
[2021-01-25] MEDS: THIAMINE HCL 100 MG TABLET PO (08:42)
[2021-01-25] MEDS: PANTOPRAZOLE 40 MG TABLET PO (08:42)
[2021-01-25] MEDS: METOPROLOL SUCCINATE EXT REL 12.5 MG TABCR PO (08:42)
[2021-01-25] MEDS: ASPIRIN 81 MG ENTERIC TABLET PO (08:43)
[2021-01-25] MEDS: DOCUSATE SODIUM 100 MG CAPSULE PO ×2 (08:43→21:18)
[2021-01-25] MEDS: FUROSEMIDE 40 MG TABLET PO (08:43)
[2021-01-25] MEDS: acetaZOLAMIDE TAB 250 MG TABLET PO (08:43)
[2021-01-25] MEDS: BACLOFEN 5 MG TABLET PO (08:43)
[2021-01-25] MEDS: ENOXAPARIN 40 MG/0.4 ML SYRINGE SUB-Q (08:44)
[2021-01-25] MEDS: FLUTICASONE PROP 110 MCG INHALER 12 GM (*SP) 2 PUFF INHALATION ×2 (08:44→20:02)
[2021-01-25] MEDS: FOLIC ACID 1 MG TABLET PO (08:44)
[2021-01-25] MEDS: LACTULOSE 20 GM/30 ML UDC PO (08:44)
--- NOTE | 2021-01-25 11:03 | PM.PNNEP ---
Progress Note: A&P Assessment and Plan (1) Hyponatremia: Code(s): E87.1 - Hypo-osmolality and hyponatremia Status: Acute Assessment and Plan: improving multifactorial etiology: - alcohol abuse with associated beer potomania - significant lung disease/COPD/emphysema - possible pneumonia - ongoing smoking - possible pre-renal factors worsened by diuretic use TSH okay, SPEP/UPEP and serum/urine osmolality pending urine electrolytes c/w prerenal azotemia cortisol low but on prednisone so interpretation difficult -- may need to recheck when off steroids follow trend of sodium (2) Hypokalemia: Code(s): E87.6 - Hypokalemia Status: Acute Assessment and Plan: doing better suspect due to total potassium body store depletion given poor oral intake replete as needed nebulizer treatments contributing (?) follow magnesium and replete as needed follow repeat K+ levels (3) COPD (chronic obstructive pulmonary disease): Qualifiers: COPD type: unspecified COPD Qualified Code(s): J44.9 - Chronic obstructive pulmonary disease, unspecified Code(s): J44.9 - Chronic obstructive pulmonary disease, unspecified Status: Acute Assessment and Plan: quite severe Pulmonary following continue current therapy (oxygen, nebs, steroids, antibiotics...etc). Will continue to follow. Subjective Date/time seen: 01/25/21 11:03 Appears to be eating and drinking better; BPs seems to be doing better with IVF resuscitation as is sodium level; no other acute issues/events overnight or earlier this AM. Exam Narrative: Exam Narrative: General: chronically ill appearing malnourished male in NAD Heart: normal S1 and S2; no rub Lungs: coarse breath sounds throughout Abdomen: soft, nontender, nondistended, positive bowel sounds Extremities: no cyanosis or clubbing; no edema Skin: warm and intact Objective Data Vital Signs Vital Signs: Vital Signs Temp Pulse Pulse Resp BP Pulse Ox 01/25/21 09:40 86 20 01/25/21 09:30 81 20 92 01/25/21 08:00 36.6 C 103 H 24 H 100/70 97 01/25/21 06:00 82 01/25/21 04:00 36.2 C L 91 91 18 92/66 L 100 01/25/21 02:30 92 20 01/25/21 02:00 96 01/25/21 00:00 36.2 C L 97 98 18 97/67 L 100 01/24/21 22:00 85 01/24/21 20:28 110 H 20 01/24/21 20:27 110 H 28 H 96 01/24/21 20:00 36.1 C L 95 93 18 97/72 L 94 01/24/21 18:00 98 01/24/21 17:36 103 H 01/24/21 16:33 115 H 01/24/21 16:00 36.1 C L 111 H 120 H 22 H 104/66 100 01/24/21 14:07 121 H 20 01/24/21 14:00 122 H 01/24/21 13:57 124 H 20 Intake/Output Intake/Output: Intake & Output 01/22/21 01/23/21 01/24/21 01/25/21 23:59 23:59 23:59 23:59 Intake Total 1290 1790 2320 900 Output Total 225 1800 1266 1025 Balance 1065 -10 1054 -125 Meds/Results Medications: Active Medications Generic Name Dose Route Start Last Admin Trade Name Ejq PRN Reason Stop Dose Admin Acetazolamide 250 mg 01/25/21 09:00 01/25/21 08:43 Acetazolamide Tab 250 Mg Tablet PO 250 mg DAILY VANESSA Administration Albuterol 2.5 mg 01/22/21 20:00 01/25/21 09:28 Albuterol Sulfate Neb 2.5 Mg/0.5 Ml Inh INHALATION 2.5 mg Q6HRT VANESSA Administration Aspirin 81 mg 01/25/21 09:00 01/25/21 08:43 Aspirin 81 Mg Enteric Tablet PO 81 mg QAM VANESSA Administration Baclofen 5 mg 01/25/21 09:00 01/25/21 08:43 Baclofen 5 Mg Tablet PO 5 mg DAILY VANESSA Administration Chlordiazepoxide HCl 25 mg 01/23/21 00:00 01/25/21 06:57 Chlordiazepoxide (*Crx) 25 Mg Capsule PO 25 mg Q6H VANESSA Administration Docusate Sodium 100 mg 01/22/21 21:00 01/25/21 08:43 Docusate Sodium 100 Mg Capsule PO 100 mg Q12HR VANESSA Administration Enoxaparin Sodium 40 mg 01/23/21 09:00 01/25/21 08:44
[2021-01-25 12:45] LABS: Sodium 129 mmol/L (137-145)
[2021-01-25] MEDS: SODIUM CHLORIDE 0.9% IV 250 ML 999 ML (13:03)
--- NOTE | 2021-01-25 13:57 | PM.IMPN ---
Progress Note: A&P Assessment and Plan (1) Hypokalemia: Code(s): E87.6 - Hypokalemia Status: Acute Assessment and Plan: Pt potassium is 2 replace potassium and recheck level likely secondary to malnutrition and recent ill health Continue potassium supplements (2) Abnormal weight loss: Code(s): R63.4 - Abnormal weight loss Status: Acute Assessment and Plan: 01/25/21 13:[address] chest and ct abdomen. CT chest showing bronchiectasis and atypical pneumonia. CT abdo showing hepatic steatosis and possible portal hypertension. Moderate colonic stool and diverticulosis. Inguinal hernias, larger on the right containing nonobstructed small bowel. Consult Pulmology, GI and surgery. Dietary consult also made for weight loss. 01/23/21 13:50 patient is a 55-year-old male with history of severe COPD and emphysema he was sent to emergency by his primary physician and is found to potassium of 2, potassium was supplement, and hyponatremia most likely secondary alcohol abuse will consult astronomy professor for further recommendation, as well as exacerbation of COPD and suspect the patient may have atypical pneumonia, patient still smokes and drinks alcohol and GI is consulted for further recommendation, patient also has bilateral inguinal hernia patient was seen by surgery service and does not recommend any surgical intervention due to severe COPD currently smoking and alcohol abuse, patient seen by punch box tender patient is started on prednisone, and and updraft as needed, currently patient states is feeling little better compared to when he arrived not a short of breath, denies any chest pain palpitation fever or chills. 01/24 today patient states feeling little better not a short of breath patient was seen by pulmonology stated patient is now his baseline recommended to continue azithromycin total of 5 days and Rocephin total for 7 days and complete 5 day course of prednisone, patient is seen by GI stated most of patient's symptoms are stemming from alcohol abuse recommended to stop alcohol, also seen nephrology for hyponatremia and workup is progress, [facility] patient states will continue to monitor will follow the recommended from GI and Nephrology and further recommendation to follow. 01/25 on 01/24 patient persistent tachycardia heart rate in 120 patient is taking metoprolol succinate 25 mg q.day, added 12.5 mg metoprolol succinate q.day, this has improved his heart rate now in 80s however patient blood pressure is soft is complaint of being tired, will give the patient bolus 250 time 2 and will monitor, will hold metoprolol succinate this is pm, will continue azithromycin total of 4/5 days and Rocephin total for 4/7 days and complete 3/5 day course of prednisone, will continue PT OT and will monitor. (3) Chronic malnutrition: Code(s): E46 - Unspecified protein-calorie malnutrition Status: Chronic Assessment and Plan: Consult billboard erector helper, add ensures to diet, pt is a known to drink alcohol daily and has been eating less. (4) COPD (chronic obstructive pulmonary disease): Qualifiers: COPD type: unspecified COPD Qualified Code(s): J44.9 - Chronic obstructive pulmonary disease, unspecified Code(s): J44.9 - Chronic obstructive pulmonary disease, unspecified Status: Acute Assessment and Plan: Continue Oxygen, add steroids, breathing treatments, watch respiratory status, pulmology consulted. (5) Bronchiectasis: Code(s): J47.9 - Bronchiectasis, uncomplicated Status: Acute Assessment and Plan: Consult pulmology for new diagnosis of bronchiectasis, sputum and Bc ordered (6) Tobacco abuse: Code(s): Z72.0 - Tobacco use Status: Chronic Assessment and Plan: Pt adviced to stop smoking, smoking cessation adviced, counselled more than 5 minutes in the hospital (7) Portal hypertension: Code(s): K76.6 - Portal hypertension Status: Acute
[2021-01-25] MEDS: SODIUM CHLORIDE 0.9% IV 250 ML 999 ML IV CONT (14:07)
--- NOTE | 2021-01-25 14:37 | PCPTNOTE ---
RN and MD request that therapy hold on this date due to change in medical status. Pt with persistent tachycardia and drop in blood pressure. PT will hold on this date.
--- NOTE | 2021-01-25 15:32 | PCDIET ---
Nutrition Follow-Up Complete: Nutrition Diagnosis: Inadequate oral intake related to poor appetite as evidenced by BMI of 17.9, reported significant weight loss, visible signs of wasting. Nutrition Goal: Patient to meet estimated nutritional needs. Goal in progress. Patient has consumed more than 90% of meals, on average, since last review. Remains on regular diet and reports taking Ensure Compact with meals. Recommend changing from Ensure Compact (220kcal, 9g protein) to Ensure Enlive (350kcal, 20g protein) now that potassium in normal range. Last recorded weight is 58.4 kg which is increased from last review. Bowel Motility: Last documented BM on 01/24/21 x 2. Labs Reviewed: Cr (0.4), K (4.9), Na (124) Meds Noted: Diamox, Rocephin, Lasix, Albuterol, Colace, Atrovent, Azithromycin, Folic Acid, Lactulose, Toprol XL, Protonix, Prednisone, Cozaar, Vitamin D1 Additional Notes: No skin breakdown documented. Will continue to monitor with same goal. Nutrition Monitoring and Evaluation: Follow up every 3 days.
--- NOTE | 2021-01-25 17:20 | PC.NURSE ---
Went into pt's room, pt had eyes open but was unresponsive until I called his name 3-4 times. He started blinking his eyes and answering questions but not all appropriately. BP still in the 80's. He spoke about being on a train and people who have passed per spouse. Pt still had only urinated 50 ml on day shift. Bladder scan showed over [address] Monroe and Called Melody (charge nurse). Lara placed, pt tolerated well, 600 mls out. BP's in the 70's-80's. Orders to transfer to ICU
--- NOTE | 2021-01-25 17:27 | PC.NURSE ---
This patient, Jimmy Welch, was transferred to ICU 6 on 01/25/21 at 1630. Personal belongings sent with patient. Bedside Report given to Nat. Appropriate documentation sent with patient.
--- NOTE | 2021-01-25 18:09 | WPDPROCEDUR ---
Procedures Central Line Placement Left Femoral: Central Line Date: 01/25/21 Central Line Time: 18:10 Discussed w/ the patient/family/POA,the placement of a central venous catheter, including its clinical necessity/indication & associated potential risks, benifits and alternatives.: Yes The patient/family/POA understand(s) and acknowledge(s) the need to proceed with central venous catheter insertion as an important element of the patient's clinical management.: Yes Consent: Patient consented Patient Position: supine Provider Prep: sterile gown, sterile gloves and hand hygiene with conventional soap/water or alcohol based hand rub Central line prep: Povidone-Iodine 1% Local anesthesia used: lidocaine 1% Sterile US Technique with sterile gel/sterile probe covers: Yes Central line lumen inserted: triple Post Procedure: sutured in place, good blood return, all ports aspirated, flushed, capped, transparent dressing and aseptic technique maintained throughout procedure Patient tolerated procedure: well and no complications
[2021-01-25] MEDS: NOREPINEPHRINE 8 MG/D5W 250 ML 8 MG/250 ML BAG 9.38 MG IV CONT (19:07)
[2021-01-25] MEDS: FUROSEMIDE INJ 40 MG/4 ML VIAL IV PUSH (19:37)
[2021-01-25 20:50] LABS: Anion Gap 3 mmol/L (8-16); Blood Urea Nitrogen 17 mg/dL (9-20); Calcium 8.1 mg/dL (8.4-10.2); Carbon Dioxide 27 mmol/L (22-30); Chloride 99 mmol/L (98-107); Estimated CRCL calculation 97 ml/min; Estimated Glomerular Filt Rate > 60; Glucose 183 mg/dL (75-110); Potassium 4.5 mmol/L (3.4-5.0); Sodium 129 mmol/L (137-145)
[2021-01-25] MEDS: ALBUMIN HUMAN 25% 25 GM/100 ML 200 ML IVPB (21:17)
[2021-01-25] MEDS: CENTRAL LINE FLUSH 10 ML IV PUSH (21:17)
[2021-01-26] VITALS (32 sets, daily range): BP systolic 86–113; BP diastolic 57–94; PULSE 81–125; RESP 22–40; TEMP 35.9–36.7; O2SAT 89–100
[2021-01-26] MEDS: dexmedeTOMIDine 400 MCG/100 ML 400 MCG/100 ML BAG IV CONT (00:29)
[2021-01-26] MEDS: ALBUTEROL SULFATE NEB 2.5 MG/0.5 ML INH INHALATION ×4 (02:00→20:02)
[2021-01-26] MEDS: IPRATROPIUM BR 0.02% INH SOLN 0.5 MG/2.5 ML VIAL INHALATION ×4 (02:01→20:01)
[2021-01-26] MEDS: CENTRAL LINE FLUSH 10 ML IV PUSH ×4 (05:06→21:02)
[2021-01-26] MEDS: ALBUMIN HUMAN 25% 25 GM/100 ML 200 ML IVPB ×3 (05:06→21:03)
[2021-01-26 05:08] LABS: Hematocrit 32.3 % (42.0-52.0); Hemoglobin 10.3 g/dL (14.0-18.0); Mean Corpuscular HGB Conc 31.9 g/dl (32-36); Mean Corpuscular Hemoglobin 34.9 pg (26-34); Mean Corpuscular Volume 109.5 fl (80-100); Mean Platelet Volume 8.9 fl (7.4-10.4); Platelet Count Result 244 k/mm3 (150-375); Red Blood Count 2.95 M/mm3 (4.6-6.20); Red Cell Distribution Width 12.9 % (11.5-14.5); White Blood Count 14.4 K/mm3 (4.5-10.0)
[2021-01-26 05:19] LABS: Anion Gap 0 mmol/L (8-16); Blood Urea Nitrogen 14 mg/dL (9-20); Calcium 8.5 mg/dL (8.4-10.2); Carbon Dioxide 33 mmol/L (22-30); Chloride 101 mmol/L (98-107); Estimated CRCL calculation 111 ml/min; Estimated Glomerular Filt Rate > 60; Glucose 101 mg/dL (75-110); Magnesium 1.4 mg/dL (1.6-2.3); Potassium 4.1 mmol/L (3.4-5.0); Sodium 134 mmol/L (137-145)
[2021-01-26] MEDS: NOREPINEPHRINE 8 MG/D5W 250 ML 8 MG/250 ML BAG 20.63 MG IV CONT (08:46)
[2021-01-26 08:57] LABS: Alveolar/Arterial O2 Gradient 128.9 mmHg; Base Excess ABG 2.6 mEq/l (+/-2.0); Fractional Inspired Oxygen 36 %; HCO3 ABG 29.8 mEq/l (22.0-26.0); Oxygen Content ABG 14.1 %vol (16.0-22.0); Oxygen Saturation ABG 87.9 % (95.0-100.0); Oxyhemoglobin 89.3 % THb (90.0-100.0); PO2 ABG 59.1 mmHg (80.0-100.0); PO2 FiO2 Ratio Arterial Blood 1.64 %; Total Hemoglobin 11.2 g/dL (12.0-18.0)
[2021-01-26 09:02] LABS: Device NASAL CANNULA; Modified Allen's Test Pass; Site Drawn LEFT RADIAL
[2021-01-26 09:03] LABS: PCO2 ABG 59.2 mmHg (35.0-45.0)
--- NOTE | 2021-01-26 09:11 | WPDCNINT ---
Assessment and Plan Assessment and plan (1) Acute and chronic respiratory failure: Code(s): J96.20 - Acute and chronic respiratory failure, unspecified whether with hypoxia or hypercapnia Status: Acute Assessment and Plan: Acute on chronic respiratory failure likely related to COPD, pneumonia, CHF -patient currently on 4 L nasal cannula which she uses at home -chest x-ray showed patchy bilateral infiltrates suggesting pneumonia -patient on ceftriaxone and azithromycin which were initiated on 01/25/21 -ABGs reviewed, hypercapnia noted, will place patient on BiPAP -appreciate pulmonology following the patient (2) Shock: Code(s): R57.9 - Shock, unspecified Status: Acute Assessment and Plan: Patient presented with hypotension, requiring central line placement after being given 500 mL of IV fluid bolus and albumin x1 bottle -patient was on Levophed this morning, pulled his central line blood pressures remained stable. -will continue to hold Levophed -CRP elevated -leukocytosis with WBC of 14.4 -continue antibiotics as above -blood cultures negative x2, urine cultures pending (3) Acute exacerbation of chronic obstructive pulmonary disease: Code(s): J44.1 - Chronic obstructive pulmonary disease with (acute) exacerbation Status: Acute Assessment and Plan: Patient with acute on chronic hypercapnic respiratory failure -continue well steroids, bronchodilators, steroid inhaler -continue antibiotics -pulmonology following the patient -will place patient on BiPAP -patient continues to smoke 1-3 cigarettes per day. Have counseled patient on cessation of smoking. (4) Pneumonia: Code(s): J18.9 - Pneumonia, unspecified organism Status: Acute Assessment and Plan: Continue antibiotics as above (5) Malnutrition: Code(s): E46 - Unspecified protein-calorie malnutrition Status: Acute Assessment and Plan: Patient with respiratory distress, likely NPO, -will start full liquid diet, will add Ensure supplements (6) Abdominal distension: Code(s): R14.0 - Abdominal distension (gaseous) Status: Acute Assessment and Plan: Abdominal obstructive series shows prominent amount of fecal material in the colon, no bowel obstruction or free air (7) DVT prophylaxis: Code(s): Z29.9 - Encounter for prophylactic measures, unspecified Status: Acute Assessment and Plan: SQ Lovenox Additional Plan Discussed with patient updated with his condition and plan of care. I answered all his questions. I did discuss with him regarding wearing his BiPAP since his pCO2 on the ABGs is elevated. He requested that I call his and ask her to come to the hospital. Called her Yaneth, she is on her way hospital. Code status: Do not intubate Critical care time spent: 46 minutes This dictation may have been done utilizing a voice recognition system. Attempts have been made to correct errors. However, there may be uncorrected grammatical, spelling, and recognition errors present. Due to a high probability of clinically significant, life threatening deterioration, the patient required my highest level of preparedness to intervene emergently and I personally spent this critical care time directly and personally managing the patient. This critical care time included obtaining a history; examining the patient; pulse oximetry; ordering and review of studies; arranging urgent treatment with development of a management plan; evaluation of patient's response to treatment; frequent reassessment; and discussions with other providers. It was exclusive of separately billable procedures and treating other patients and teaching time. Please see Assessment and Plan section and the rest of the note for further information on patient assessment and treatment Leather Shaver Consult Note Consult date: 01/26/21 Time Seen: 07:03 Reason for consult: Hypotension, septic s
[2021-01-26] MEDS: FLUTICASONE PROP 110 MCG INHALER 12 GM (*SP) 2 PUFF INHALATION ×2 (09:49→19:38)
[2021-01-26] MEDS: ENOXAPARIN 40 MG/0.4 ML SYRINGE SUB-Q (09:51)
[2021-01-26] MEDS: FOLIC ACID 1 MG/0.2 ML INJ IV PUSH (10:58)
[2021-01-26] MEDS: PANTOPRAZOLE SODIUM IV 40 MG VIAL IV PUSH (10:59)
[2021-01-26] MEDS: methylPREDNISolone SOD SUCC 40 MG VIAL IV PUSH ×2 (11:00→21:02)
[2021-01-26] MEDS: UMECLIDINIUM/VILANTEROL 62.5-25 MCG ELLIPTA 1 PUFF INHALATION (11:02)
--- NOTE | 2021-01-26 11:02 | P.PNNP_ITS ---
Progress Note: A&P Assessment and Plan (1) Hyponatremia: Code(s): E87.1 - Hypo-osmolality and hyponatremia Status: Acute Assessment and Plan: * improving/resolving * multifactorial etiology: - alcohol abuse with associated beer potomania - significant lung disease/COPD/emphysema - possible pneumonia - ongoing smoking - possible pre-renal factors worsened by diuretic use * TSH okay, SPEP/UPEP and serum/urine osmolality pending * urine electrolytes c/w prerenal azotemia * sodium improving with IVFs arguing more in favor of volume depletion * cortisol low but on prednisone so interpretation difficult -- may need to recheck when off steroids * follow trend of sodium (2) Hypokalemia: Code(s): E87.6 - Hypokalemia Status: Acute Assessment and Plan: * doing better * suspect due to total potassium body store depletion given poor oral intake * replete as needed * nebulizer treatments contributing (?) * follow magnesium and replete as needed * follow repeat K+ levels (3) Shock: Code(s): R57.9 - Shock, unspecified Status: Acute Assessment and Plan: * presumably secondary to pneumonia * however, suspect has some degree of baseline hypotension given his cardiomyopathy (EF ~ 20%) * weaned off pressors this AM * follow hemodynamics (4) Pneumonia: Code(s): J18.9 - Pneumonia, unspecified organism Status: Acute Assessment and Plan: * as evidenced by imaging studies to date * on antibiotics * follow culture data (5) COPD (chronic obstructive pulmonary disease): Qualifiers: COPD type: unspecified COPD Qualified Code(s): J44.9 - Chronic obstructive pulmonary disease, unspecified Code(s): J44.9 - Chronic obstructive pulmonary disease, unspecified Status: Acute Assessment and Plan: * quite severe * Pulmonary following * continue current therapy (oxygen, nebs, steroids, antibiotics...etc). Will continue to follow. Subjective Date/time seen: 01/26/21 11:02 Events noted yesterday afternoon -- persistent hypotension despite IVF boluses and IV albumin necessitating placement of central line and institution of pressor therapy; respiratory status declined a bit as well thought to secondary to mild volume overload (from IVF boluses) so given IV diuretics but CXR with pneumonia; off pressors at this time. Exam Narrative: Exam Narrative: General: chronically ill appearing malnourished male in [place] [facility]: normal S1 and S2; no rub Lungs: coarse breath sounds throughout Abdomen: soft, nontender, nondistended, positive bowel sounds Extremities: no cyanosis or clubbing; no edema Skin: warm and intact Objective Data Vital Signs Vital Signs: Vital Signs Temp Pulse Pulse Resp BP Pulse Ox 01/26/21 08:28 82 22 H 95 01/26/21 08:00 100 01/26/21 06:00 88 30 H 96/69 L 94 01/26/21 04:00 36.3 C L 87 87 24 H 101/70 96 01/26/21 02:08 89 25 H 01/26/21 02:01 91 28 H 01/26/21 02:00 84 25 H 100/73 97 01/26/21 01:11 107 H 35 H 01/26/21 00:29 105 H 32 H 01/26/21 00:02 109 H 113/94 H 01/26/21 00:00 35.9 C L 107 H 36 H 113/94 H 94 01/25/21 22:02 95 86/54 L 01/25/21 22:00 94 23 H 86/64 L 96
--- NOTE | 2021-01-26 11:02 | PM.PNNEP ---
Progress Note: A&P Assessment and Plan (1) Hyponatremia: Code(s): E87.1 - Hypo-osmolality and hyponatremia Status: Acute Assessment and Plan: improving/resolving multifactorial etiology: - alcohol abuse with associated beer potomania - significant lung disease/COPD/emphysema - possible pneumonia - ongoing smoking - possible pre-renal factors worsened by diuretic use TSH okay, SPEP/UPEP and serum/urine osmolality pending urine electrolytes c/w prerenal azotemia sodium improving with IVFs arguing more in favor of volume depletion cortisol low but on prednisone so interpretation difficult -- may need to recheck when off steroids follow trend of sodium (2) Hypokalemia: Code(s): E87.6 - Hypokalemia Status: Acute Assessment and Plan: doing better suspect due to total potassium body store depletion given poor oral intake replete as needed nebulizer treatments contributing (?) follow magnesium and replete as needed follow repeat K+ levels (3) Shock: Code(s): R57.9 - Shock, unspecified Status: Acute Assessment and Plan: presumably secondary to pneumonia however, suspect has some degree of baseline hypotension given his cardiomyopathy (EF ~ 20%) weaned off pressors this AM follow hemodynamics (4) Pneumonia: Code(s): J18.9 - Pneumonia, unspecified organism Status: Acute Assessment and Plan: as evidenced by imaging studies to date on antibiotics follow culture data (5) COPD (chronic obstructive pulmonary disease): Qualifiers: COPD type: unspecified COPD Qualified Code(s): J44.9 - Chronic obstructive pulmonary disease, unspecified Code(s): J44.9 - Chronic obstructive pulmonary disease, unspecified Status: Acute Assessment and Plan: quite severe Pulmonary following continue current therapy (oxygen, nebs, steroids, antibiotics...etc). Will continue to follow. Subjective Date/time seen: 01/26/21 11:02 Events noted yesterday afternoon -- persistent hypotension despite IVF boluses and IV albumin necessitating placement of central line and institution of pressor therapy; respiratory status declined a bit as well thought to secondary to mild volume overload (from IVF boluses) so given IV diuretics but CXR with pneumonia; off pressors at this time. Exam Narrative: Exam Narrative: General: chronically ill appearing malnourished male in [place] Heart: normal S1 and S2; no rub Lungs: coarse breath sounds throughout Abdomen: soft, nontender, nondistended, positive bowel sounds Extremities: no cyanosis or clubbing; no edema Skin: warm and intact Objective Data Vital Signs Vital Signs: Vital Signs Temp Pulse Pulse Resp BP Pulse Ox 01/26/21 08:28 82 22 H 95 01/26/21 08:00 100 01/26/21 06:00 88 30 H 96/69 L 94 01/26/21 04:00 36.3 C L 87 87 24 H 101/70 96 01/26/21 02:08 89 25 H 01/26/21 02:01 91 28 H 01/26/21 02:00 84 25 H 100/73 97 01/26/21 01:11 107 H 35 H 01/26/21 00:29 105 H 32 H 01/26/21 00:02 109 H 113/94 H 01/26/21 00:00 35.9 C L 107 H 36 H 113/94 H 94 01/25/21 22:02 95 86/54 L 01/25/21 22:00 94 23 H 86/64 L 96 01/25/21 21:15 90 81/59 L 01/25/21 20:10 110 H 32 H 01/25/21 20:06 109 H 32 H 94 01/25/21 20:02 99 28 H 01/25/21 20:00 36.2 C L 107 H 110 H 31 H 97/67 L 95 01/25/21 19:36 97 84/58 L 01/25/21 19:07 100 82/61 L 01/25/21 18:00 101 H 01/25/21 16:40 95 01/25/21 16:30 36.4 C L 104 H 26 H 81/55 L 100 01/25/21 16:11 36.4 C L 104 H 26 H 81/55 L 100 01/25/21 16:00 105 H 100 01/25/21 15:45 78/42 L 01/25/21 15:32 86/42 L 01/25/21 14:20 99 20 01/25/21 14:12 108 H 20 01/25/21 14:00 105 H 01/25/21 13:
[2021-01-26] MEDS: MAGNESIUM SULF 2 GM/WATER 50ML 2 GM/50 ML BAG IVPB (12:32)
--- NOTE | 2021-01-26 12:58 | PM.IMPN ---
Progress Note: A&P Assessment and Plan (1) Hypokalemia: Code(s): E87.6 - Hypokalemia Status: Acute Assessment and Plan: Pt potassium is 2 replace potassium and recheck level likely secondary to malnutrition and recent ill health Continue potassium supplements (2) Abnormal weight loss: Code(s): R63.4 - Abnormal weight loss Status: Acute Assessment and Plan: 01/26/21 12:[address] chest and ct abdomen. CT chest showing bronchiectasis and atypical pneumonia. CT abdo showing hepatic steatosis and possible portal hypertension. Moderate colonic stool and diverticulosis. Inguinal hernias, larger on the right containing nonobstructed small bowel. Consult Pulmology, GI and surgery. Dietary consult also made for weight loss. 01/23/21 13:50 patient is a 55-year-old male with history of severe COPD and emphysema he was sent to emergency by his primary physician and is found to potassium of 2, potassium was supplement, and hyponatremia most likely secondary alcohol abuse will consult almond pan finisher for further recommendation, as well as exacerbation of COPD and suspect the patient may have atypical pneumonia, patient still smokes and drinks alcohol and GI is consulted for further recommendation, patient also has bilateral inguinal hernia patient was seen by surgery service and does not recommend any surgical intervention due to severe COPD currently smoking and alcohol abuse, patient seen by panel instrument repairer patient is started on prednisone, and and updraft as needed, currently patient states is feeling little better compared to when he arrived not a short of breath, denies any chest pain palpitation fever or chills. 01/24 today patient states feeling little better not a short of breath patient was seen by pulmonology stated patient is now his baseline recommended to continue azithromycin total of 5 days and Rocephin total for 7 days and complete 5 day course of prednisone, patient is seen by GI stated most of patient's symptoms are stemming from alcohol abuse recommended to stop alcohol, also seen nephrology for hyponatremia and workup is progress, [facility] patient states will continue to monitor will follow the recommended from GI and Nephrology and further recommendation to follow. 01/25 on 01/24 patient persistent tachycardia heart rate in 120 patient is taking metoprolol succinate 25 mg q.day, added 12.5 mg metoprolol succinate q.day, this has improved his heart rate now in 80s however patient blood pressure is soft is complaint of being tired, will give the patient bolus 250 time 2 and will monitor, will hold metoprolol succinate this is pm, will continue azithromycin total of 4/5 days and Rocephin total for 4/7 days and complete 3/5 day course of prednisone, will continue PT OT and will monitor. 01/26 on 01/25 patient was transferred to ICU due to hypotension, patient was started on IV albumin however patient blood pressure remained hypertension and was placed on Levophed, patient was also placed on Precedex as patient has long history of alcohol abuse, currently patient is on BiPAP unable to provide detail review of symptoms, is clinically stable is seen by physical therapy aide and further recommendation to follow. (3) Chronic malnutrition: Code(s): E46 - Unspecified protein-calorie malnutrition Status: Chronic Assessment and Plan: Consult retail director, add ensures to diet, pt is a known to drink alcohol daily and has been eating less. (4) COPD (chronic obstructive pulmonary disease): Qualifiers: COPD type: unspecified COPD Qualified Code(s): J44.9 - Chronic obstructive pulmonary disease, unspecified Code(s): J44.9 - Chronic obstructive pulmonary disease, unspecified Status: Acute Assessment and Plan: Continue Oxygen, add steroids, breathing treatments, watch respiratory status, pulmology consulted. (5) Bronchiectasis: Code(s): J47.9 - Bronchiectasis, uncomplicated S
--- NOTE | 2021-01-26 14:04 | PCPTNOTE ---
Pt transferred to ICU 6, spoke with nurse who requested therapy be placed on hold today. Asked the nurse, Nat, to place a hold order in the chart.
--- NOTE | 2021-01-26 14:38 | PM.EVENT ---
Event Note Event Note Event Note: I was asked to see the patient by the nurse, as he was tachypneic, tachycardic and refusing to wear the BiPAP. Patient is on 4 L nasal cannula with low O2 sats. He is kind of aspirating with his diet. I discussed with him regarding wearing the BiPAP to which he refused, he also does not want to be intubated. A given option of hospice care to which he said if his is okay he would be fine with that. I discussed with his Yaneth, we had a good discussion regarding his medical condition, she stated that she has been talking about this for a while that he should be on hospice. Also his electronic maintenance supervisor in [place] had also recommended hospice. I have called the career representative and discussed for hospice referral. The orders were placed in the chart. Dr. Monroe, the hospitalist has been notified.
[2021-01-26] MEDS: SCOPOLAMINE 1.5 MG PATCH TRANSDERM (21:02)
[2021-01-27] VITALS (10 sets, daily range): BP systolic 94–109; BP diastolic 61–73; PULSE 107–123; RESP 27–38; TEMP 36.2–36.4; O2SAT 87–97
[2021-01-27] MEDS: ALBUTEROL SULFATE NEB 2.5 MG/0.5 ML INH INHALATION ×2 (01:58→08:33)
[2021-01-27] MEDS: IPRATROPIUM BR 0.02% INH SOLN 0.5 MG/2.5 ML VIAL INHALATION ×2 (01:58→08:33)
[2021-01-27] MEDS: CENTRAL LINE FLUSH 10 ML IV PUSH (05:26)
[2021-01-27] MEDS: ALBUMIN HUMAN 25% 25 GM/100 ML 200 ML IVPB (05:26)
[2021-01-27 05:45] LABS: Basophils Percent Auto 0.1 % (0.2-1.2); Hematocrit 28.9 % (42.0-52.0); Immature Granulocyte Absolute 0.11 K/mm3 (0.00-0.031); Immature Granulocyte Percent A 1.2 % (0-0.5); Lymphocytes Absolute Auto 0.26 K/mm3 (0.9-3.2); Lymphocytes Percent Auto 2.7 % (18.3-44.2); Mean Corpuscular HGB Conc 31.1 g/dl (32-36); Mean Corpuscular Hemoglobin 35.3 pg (26-34); Mean Corpuscular Volume 113.3 fl (80-100); Mean Platelet Volume 9.5 fl (7.4-10.4); Monocytes Absolute Auto 0.4 K/mm3 (0.1-0.6); Monocytes Percent Auto 4.2 % (2.6-8.5); Neutrophils Absolute Auto 8.7 K/mm3 (1.3-6.7); Neutrophils Percent Auto 91.8 % (45.5-73.1); Platelet Count Result 181 k/mm3 (150-375); Red Blood Count 2.55 M/mm3 (4.6-6.20); Red Cell Distribution Width 13.2 % (11.5-14.5); White Blood Count 9.5 K/mm3 (4.5-10.0)
[2021-01-27 05:54] LABS: Potassium 5.1 mmol/L (3.4-5.0)
[2021-01-27 06:00] LABS: Osmolality, Urine 292 mOsm/kg (50-1200)
[2021-01-27 06:02] LABS: Anion Gap 0 mmol/L (8-16); Blood Urea Nitrogen 17 mg/dL (9-20); Calcium 8.6 mg/dL (8.4-10.2); Carbon Dioxide 35 mmol/L (22-30); Chloride 100 mmol/L (98-107); Estimated CRCL calculation 105 ml/min; Estimated Glomerular Filt Rate > 60; Glucose 212 mg/dL (75-110); Phosphorus 1.7 mg/dL (2.5-4.5); Sodium 135 mmol/L (137-145)
[2021-01-27 06:38] LABS: Platelet Estimate Adequate (Adequate)
[2021-01-27 06:39] LABS: Anisocytosis 1+ (NORMAL); Hypochromasia 1+ (NORMAL); Stomatocytes 1+ (NORMAL)
[2021-01-27] MEDS: FLUTICASONE PROP 110 MCG INHALER 12 GM (*SP) 2 PUFF INHALATION (08:34)
[2021-01-27] MEDS: UMECLIDINIUM/VILANTEROL 62.5-25 MCG ELLIPTA 1 PUFF INHALATION (08:34)
[2021-01-27] MEDS: methylPREDNISolone SOD SUCC 40 MG VIAL IV PUSH (08:41)
[2021-01-27] MEDS: PANTOPRAZOLE SODIUM IV 40 MG VIAL IV PUSH (08:43)
[2021-01-27] MEDS: FOLIC ACID 1 MG/0.2 ML INJ IV PUSH (08:45)
[2021-01-27] MEDS: ENOXAPARIN 40 MG/0.4 ML SYRINGE SUB-Q (08:50)
[2021-01-27] MEDS: SODIUM PHOSPHATE 20 MM in DEXTROSE 5% IN WATER 250 ML 50 MM IVPB (09:40)
--- NOTE | 2021-01-27 09:42 | PCPTNOTE ---
per nurse, pt remains on hold. Nat states she will place hold order.
--- NOTE | 2021-01-27 10:27 | PM.DS ---
DS: Admitting Diagnosis Admitting Diagnosis Admitting Diagnosis: Hypokalemia DS: Discharge Diagnosis Discharge Diagnosis (1) Hypokalemia: Code(s): E87.6 - Hypokalemia Status: Acute Assessment and Plan: Pt potassium is 2 replace potassium and recheck level likely secondary to malnutrition and recent ill health Continue potassium supplements (2) Abnormal weight loss: Code(s): R63.4 - Abnormal weight loss Status: Acute Assessment and Plan: 01/26/21 12:[address] chest and ct abdomen. CT chest showing bronchiectasis and atypical pneumonia. CT abdo showing hepatic steatosis and possible portal hypertension. Moderate colonic stool and diverticulosis. Inguinal hernias, larger on the right containing nonobstructed small bowel. Consult Pulmology, GI and surgery. Dietary consult also made for weight loss. 01/23/21 13:50 patient is a 55-year-old male with history of severe COPD and emphysema he was sent to emergency by his primary physician and is found to potassium of 2, potassium was supplement, and hyponatremia most likely secondary alcohol abuse will consult partition making machine operator for further recommendation, as well as exacerbation of COPD and suspect the patient may have atypical pneumonia, patient still smokes and drinks alcohol and GI is consulted for further recommendation, patient also has bilateral inguinal hernia patient was seen by surgery service and does not recommend any surgical intervention due to severe COPD currently smoking and alcohol abuse, patient seen by counter waiter patient is started on prednisone, and and updraft as needed, currently patient states is feeling little better compared to when he arrived not a short of breath, denies any chest pain palpitation fever or chills. 01/24 today patient states feeling little better not a short of breath patient was seen by pulmonology stated patient is now his baseline recommended to continue azithromycin total of 5 days and Rocephin total for 7 days and complete 5 day course of prednisone, patient is seen by GI stated most of patient's symptoms are stemming from alcohol abuse recommended to stop alcohol, also seen nephrology for hyponatremia and workup is progress, [facility] patient states will continue to monitor will follow the recommended from GI and Nephrology and further recommendation to follow. 01/25 on 01/24 patient persistent tachycardia heart rate in 120 patient is taking metoprolol succinate 25 mg q.day, added 12.5 mg metoprolol succinate q.day, this has improved his heart rate now in 80s however patient blood pressure is soft is complaint of being tired, will give the patient bolus 250 time 2 and will monitor, will hold metoprolol succinate this is pm, will continue azithromycin total of 4/5 days and Rocephin total for 4/7 days and complete 3/5 day course of prednisone, will continue PT OT and will monitor. 01/26 on 01/25 patient was transferred to ICU due to hypotension, patient was started on IV albumin however patient blood pressure remained hypertension and was placed on Levophed, patient was also placed on Precedex as patient has long history of alcohol abuse, currently patient is on BiPAP unable to provide detail review of symptoms, is clinically stable is seen by coil finisher and further recommendation to follow. (3) Chronic malnutrition: Code(s): E46 - Unspecified protein-calorie malnutrition Status: Chronic Assessment and Plan: Consult spin tank tender, add ensures to diet, pt is a known to drink alcohol daily and has been eating less. (4) COPD (chronic obstructive pulmonary disease): Qualifiers: COPD type: unspecified COPD Qualified Code(s): J44.9 - Chronic obstructive pulmonary disease, unspecified Code(s): J44.9 - Chronic obstructive pulmonary disease, unspecified Status: Acute Assessment and Plan: Continue Oxygen, add steroids, breathing treatments, watch respiratory status, pulmology consulted
--- NOTE | 2021-01-27 10:59 | WPDINTPN ---
Progress Note: A&P Assessment and Plan (1) Acute and chronic respiratory failure: Code(s): J96.20 - Acute and chronic respiratory failure, unspecified whether with hypoxia or hypercapnia Status: Acute Assessment and Plan: Acute on chronic respiratory failure likely related to COPD, pneumonia, CHF -chest x-ray showed patchy bilateral infiltrates suggesting pneumonia -patient on ceftriaxone and azithromycin which were initiated on 01/25/21 -Patient currently on high-flow therapy - pulmonology following the patient (2) Shock: Code(s): R57.9 - Shock, unspecified Status: Acute Assessment and Plan: Patient presented with hypotension, requiring central line placement after being given 500 mL of IV fluid bolus and albumin x1 bottle -patient was on Levophed this morning, pulled his central line blood pressures remained stable. -will continue to hold Levophed -CRP elevated -leukocytosis with WBC of 14.4 -continue antibiotics as above -blood cultures negative x2, urine cultures pending -discussed with patient's on 01/26/2021 regarding hospice consult, delete willing to meet and toxin patient make the patient hospice at some point today (3) Acute exacerbation of chronic obstructive pulmonary disease: Code(s): J44.1 - Chronic obstructive pulmonary disease with (acute) exacerbation Status: Acute Assessment and Plan: Patient with acute on chronic hypercapnic respiratory failure -continue well steroids, bronchodilators, steroid inhaler -continue antibiotics -pulmonology following the patient -continue high-flow therapy -patient continues to smoke 1-3 cigarettes per day. Have counseled patient on cessation of smoking. (4) Pneumonia: Code(s): J18.9 - Pneumonia, unspecified organism Status: Acute Assessment and Plan: Continue antibiotics as above (5) Malnutrition: Code(s): E46 - Unspecified protein-calorie malnutrition Status: Acute Assessment and Plan: Patient with respiratory distress, likely NPO, -will start full liquid diet, will add Ensure supplements (6) Abdominal distension: Code(s): R14.0 - Abdominal distension (gaseous) Status: Acute Assessment and Plan: Abdominal obstructive series shows prominent amount of fecal material in the colon, no bowel obstruction or free air (7) DVT prophylaxis: Code(s): Z29.9 - Encounter for prophylactic measures, unspecified Status: Acute Assessment and Plan: SQ Lovenox Additional Plan D discussed with patient and Yaneth yesterday, agreed to hospice team. Done care coordination and been in constant touch with the hospice team most likely patient removing out today Code status: Do not intubate Critical care time spent: 41 minutes This dictation may have been done utilizing a voice recognition system. Attempts have been made to correct errors. However, there may be uncorrected grammatical, spelling, and recognition errors present. Due to a high probability of clinically significant, life threatening deterioration, the patient required my highest level of preparedness to intervene emergently and I personally spent this critical care time directly and personally managing the patient. This critical care time included obtaining a history; examining the patient; pulse oximetry; ordering and review of studies; arranging urgent treatment with development of a management plan; evaluation of patient's response to treatment; frequent reassessment; and discussions with other providers. It was exclusive of separately billable procedures and treating other patients and teaching time. Please see Assessment and Plan section and the rest of the note for further information on patient assessment and treatment Subjective Date/time seen: 01/27/21 10:59 Interval history: Reason for consult: Hypotension, septic shock, acute on chronic respiratory failure, hyponatremia 01/27/2021 nayeli
[2021-01-27] MEDS: ALBUTEROL SULFATE (*SP) AEROSOL 1 PUFF 2 PUFF INHALATION (11:27)
[2021-01-27 21:54] LABS: Albumin 2.7 g/dL (3.8-4.8); Alpha 1 Globulin 0.6 g/dL (0.2-0.3); Alpha 2 Globulin 0.7 g/dL (0.5-0.9); Beta 1 Globulin 0.4 g/dL (0.4-0.6); Gamma Globulin 0.9 g/dL (0.8-1.7); Protein, Total 5.6 g/dL (6.1-8.1)
[2021-01-27 22:37] LABS: Kappa\\Lambda Light Chains 0.91 (0.26-1.65); Lambda Light Chain 34.6 mg/L (5.7-26.3)
--- NOTE | 2021-01-28 14:27 | WPDPROCEDUR ---
Procedures Central Line Placement Right Femoral: Central Line Date: 01/26/21 Central Line Time: 09:35 Discussed w/ the patient/family/POA,the placement of a central venous catheter, including its clinical necessity/indication & associated potential risks, benifits and alternatives.: Yes The patient/family/POA understand(s) and acknowledge(s) the need to proceed with central venous catheter insertion as an important element of the patient's clinical management.: Yes Time Out Performed: Yes Patient Position: supine Patient placed on monitor/pulse ox: Yes Provider Prep: mask, sterile gown, sterile gloves, Max. sterile barrier precautions, cap, hand hygiene with conventional soap/water or alcohol based hand rub and emergent ? sterile barriers not used Central line prep: 2% Chlorhexidine scrub Local anesthesia used: lidocaine 1% Amount of anesthesia used (ml): 4 Sterile US Technique with sterile gel/sterile probe covers: Yes Central line lumen inserted: triple [place]: 12 Length (cm): 16 Depth of Insertion (cm): 16 Post Procedure: sutured in place, good blood return, all ports aspirated, flushed, capped, transparent dressing, hemostatic product, antimicrobial product, securement product and aseptic technique maintained throughout procedure Patient tolerated procedure: well Complications: none Additional comments: This line was inserted by Dr. Pan, who I precepted. I was present for the entire procedure. All aseptic and sterile techniques were maintained.
[2021-01-30 08:42] LABS: Creatinine, Random Urine 56 mg/dL (20-320); Total Protein/Creatinine Ratio 196 mg/g creat (22-128)
== END 2021-01-27 12:35 | disposition hospice, home (50) | DRG 193 ==
LOC: ANHED 12:18 → ANHIMU 15:52 → ANHICU 01-27 10:27 → ANHIMU 01-30 16:27
PROVIDERS: Family Medicine; Internal Medicine; Internal Medicine Gastroenterology; Internal Medicine Nephrology; Nurse Practitioner; Admitting Provider Internal Medicine; Emergency Provider Emergency Medicine; PCP Family Medicine; Visit Provider Family Medicine
PROC: 0DJ08ZZ Inspection of Upper Intestinal Tract, Via Natural or Artificial Opening Endoscopic (ICD-10-PCS; CPT 43235; principal; 2021-01-23 14:00)
DX: J18.9 Pneumonia, unspecified organism (principal); J96.21 Acute and chronic respiratory failure with hypoxia; R57.8 Other shock; K76.6 Portal hypertension; E46 Unspecified protein-calorie malnutrition; E87.1 Hypo-osmolality and hyponatremia; I50.32 Chronic diastolic (congestive) heart failure; E87.6 Hypokalemia; K29.70 Gastritis, unspecified, without bleeding; J43.9 Emphysema, unspecified; J47.9 Bronchiectasis, uncomplicated; R63.4 Abnormal weight loss; K40.90 Unilateral inguinal hernia, without obstruction or gangrene, not specified as recurrent; F10.20 Alcohol dependence, uncomplicated; F17.210 Nicotine dependence, cigarettes, uncomplicated; R62.7 Adult failure to thrive; Z68.20 Body mass index [BMI] 20.0-20.9, adult; Z85.828 Personal history of other malignant neoplasm of skin
CPT/HCPCS: 36415; 36600; 71045; 71046; 71250; 74019; 74177; 76705; 80048; 80053; 81050; 82533; 82570; 82805; 83605; 83735; 83883; 83930; 83935; 84100; 84132; 84155; 84156; 84165; 84166; 84295; 84300; 84443; 85025; 85027; 87040; 87086; 88305; 93005; 94640; 94667; 94669; 96365; 96366; 96368; 96375; 97110; 97116; 97161; 99285; A9270; C1751; C9113; G0378; J0456; J0696; J1650; J1940; J2704; J2920; J3475; J3480; J7030; J7040; J7050; J7060; J7120; J7512; P9047; Q9967